=== PATIENT | male | born 1955 | race American Indian/Alaskan Native ===

== ENCOUNTER 2019-04-13 20:56 | Inpatient (IN) | payer OTHER, MEDICARE ==
[2019-04-13] MEDS ORDERED: LASIX IV ONE (21:03)
--- NOTE | 2019-04-13 21:06 | Emergency Department Report ---
ED Shortness of Breath HPI - General Stated Complaint: HIGH BP Time Seen by Provider: 04/13/19 21:02 Source: patient, EMS, old records reviewed Mode of arrival: Stretcher Limitations: Physical Limitation (respiratory distress) - History of Present Illness Initial Comments: 67-year-old male with a past medical history CHF, hypertension, diabetes, end- stage renal disease on dialysis Saturday, , and Saturday presents to the hospital complaints of respiratory distress. Upon EMS arrival patient had respiratory distress, decreased responsiveness, and hypoxia. Patient was provided CPAP during transport with some improvement. They report a systolic blood pressure in the 300s. Patient states she's been compliant with his meds and dialysis with last dialysis Saturday i.e. 2 days ago. He also has some urine output. He denies pain. Rigging Man: DR Bowser - Related Data Allergies Allergy/AdvReac Type Severity Reaction Status Date / Time No Known Allergies Allergy Unverified 04/13/19 21:04 ED Review of Systems ROS: Stated complaint: HIGH BP Other details as noted in HPI Comment: Unobtainable due to pts medical conditions ED Past Medical Hx - Past Medical History Hx Hypertension: Yes Hx Congestive Heart Failure: Yes Hx Renal Disease: Yes (esrd) ED Physical Exam - Other Other exam information: General: Respiratory distress, alert Head exam: Atraumatic, normocephalic Eyes exam: Normal appearance, pupils equal reactive to light, extraocular movements intact ENT: Moist mucous membrane, normal oropharynx, maxillary sinus tenderness Neck exam: Normal inspection, full range of motion, no meningismus nontender Respiratory exam: Tachypnea, bilateral rales, breath sounds equal bilaterally Cardiovascular: Regular rate and rhythm, mild tachycardia Abdomen: Soft, nondistended, and nontender, with normal bowel sounds, no rebound, or guarding Extremity: Full range of motion, no calf tenderness or leg edema. Left arm dialysis access Back: Normal Inspection Neurologic: Alert, oriented x3, cranial nerves intact, no motor or sensory deficit Psychiatric: normal affect, normal mood Skin: Warm, dry, intact ED Course Vital Signs 04/13/19 21:00 Temperature 97.9 F Pulse Rate 94 H Respiratory 26 H Rate Blood Pressure 253/130 Blood Pressure 253/130 [Right] O2 Sat by Pulse 99 Oximetry - Consultations Consultation #1: 04/13/19 22:27 case d/w Dr Bowser who plans to perform dialysis in AM unless he deteriorates ED Medical Decision Making - Lab Data Result diagrams: 04/13/19 21:12 04/13/19 21:12 Lab Results 04/13/19 04/13/19 04/13/19 Range/Units 21:12 21:12 21:12 WBC 5.4 (4.5-11.0) K/mm3 RBC 3.82 (3.65-5.03) M/mm3 Hgb 11.8 (11.8-15.2) gm/dl Hct 34.0 L (35.5-45.6) % MCV 89 (84-94) fl MCH 31 (28-32) pg MCHC 35 H (32-34) % RDW 15.2 (13.2-15.2) % Plt Count 185 (140-440) K/mm3 Lymph % (Auto) 17.0 (13.4-35.0) % [place] % (Auto) 7.2 (0.0-7.3) % Eos % (Auto) 13.7 H (0.0-4.3) % Baso % (Auto) 1.0 (0.0-1.8) % Lymph # 0.9 L (1.2-5.4) K/mm3 [place] # 0.4 (0.0-0.8) K/mm3 Eos # 0.7 H (0.0-0.4) K/mm3 Baso # 0.1 (0.0-0.1) K/mm3 Seg Neutrophils % 61.1 (40.0-70.0) % Seg Neutrophils # 3.3 (1.8-7.7) K/mm3 PT 12.4 (12.2-14.9) Sec. INR 0.87 (0.87-1.13) Sodium 139 (137-145) mmol/L Potassium 3.7 (3.6-5.0) mmol/L Chloride 96.6 L (98-107) mmol/L Carbon Dioxide 22 (22-30) mmol/L Anion Gap 24 mmol/L BUN 56 H (9-20) mg/dL Creatinine 11.5 H (0.8-1.5) mg/dL Estimated GFR 4 ml/min BUN/Creatinine Ratio 5 % Glucose 214 H (75-100) mg/dL Calcium 8.5 (8.4-10.2) mg/dL Total Bilirubin 0.40 (0.1-1.2) mg/dL AST 36 (5-40) units/L ALT 25 (7-56) units/L Alkaline Phosphatase 96 (35-129) units/L Troponin T 0.033 H (0.00-0.029) ng/mL NT-Pro-B Natriuret Pep 65699 H (0-900) pg/mL Total Protein 7.3 (6.3-8.2) g/dL Albumin 3.8 L (3.9-5) g/dL Albumin/Globulin Ratio 1.1 % Triglycerides 203 H (2-149) mg/dL Cholesterol 160 (50-199) mg/dL LDL Cholesterol Direct 98 (50-130) mg/dL HDL Cholesterol 41 (40-59) mg/dL Cholesterol/HDL Ratio 3.90 % - EKG Data -: EKG Interpreted by Me EKG shows normal: sinus rhythm, axis (qrs 67), QRS complexes (qrsd 85), ST-T waves (no stemi/t inv) Rate: normal (84) - EKG Data When compared to previous EKG there are: previous EKG unavailable (awaiting name change/chart verification) - Radiology Data Radiology results: image reviewed (cxr: pulm edema read by me) - Medical Decision Making +pulm edema htn emergency esrd needing dialysis tx with lasix, bipap, nitro drip nephro consult pt sx improving with ed tx elevated trop likely due to esrd, asa given, repeat pending Hospitalist informed for admission - Differential Diagnosis pulmonary edema, CHF, hyperkalemia, LA Critical Care Time: Yes Critical care time in (mins) excluding proc time.: 35 Critical care attestation.: If time is entered above; I have spent that time in minutes in the direct care of this critically ill patient, excluding procedure time. ED Disposition Clinical Impression: Pulmonary edema, Hypertensive emergency, ESRD needing dialysis Disposition: OP ADMIT IP TO THIS HOSP Is pt being admited?: Yes Does the pt Need Aspirin: Yes Condition: Stable Time of Disposition: 22:44 (Dr Phillips/hosp)
[2019-04-13 21:25] LABS: Basophils # (Auto) 0.1 K/mm3 (0.0-0.1); Eosinophils # (Auto) 0.7 K/mm3 (0.0-0.4); Eosinophils % (Auto) 13.7 % (0.0-4.3); Hemoglobin 11.8 gm/dl (11.8-15.2); Lymphocytes # (Auto) 0.9 K/mm3 (1.2-5.4); Mean Corpuscular HGB Conc 35 % (32-34); Mean Corpuscular Volume 89 fl (84-94); Monocytes # (Auto) 0.4 K/mm3 (0.0-0.8); Monocytes % (Auto) 7.2 % (0.0-7.3); Platelet Count 185 K/mm3 (140-440); Red Blood Count 3.82 M/mm3 (3.65-5.03); Red Cell Distribution Width 15.2 % (13.2-15.2)
[2019-04-13 21:39] LABS: INR 0.87 (0.87-1.13)
[2019-04-13 21:45] LABS: Albumin 3.8 g/dL (3.9-5); Calcium 8.5 mg/dL (8.4-10.2)
[2019-04-13 21:57] LABS: Chol/HDL Ratio 3.9 %
[2019-04-13] MEDS: TRIDIL DRIP 50MG/250ML 50 MG/250 ML BOTTLE IV SCH (22:10)
[2019-04-13] MEDS ORDERED: ASPIRIN PO ONE (22:11)
[2019-04-13] MEDS ORDERED: NACL 0.9% 100 ML IV PRN (22:28)
--- NOTE | 2019-04-13 23:11 | XRay Report ---
PROCEDURE: XR CHEST 1V AP TECHNIQUE: Chest radiograph single view. HISTORY: Chest Pain COMPARISONS: None . FINDINGS: Heart: Normal. Mediastinum/Vessels: Normal. Lungs/Pleural space: Slight increased markings identified in the hilar regions may represent mild in filtrative process or vascular congestion. No effusion or pneumothorax. Bony thorax: No acute osseous abnormality. Life support devices: None. IMPRESSION: Slight increased markings hilar regions may represent a mild infiltrative process or vas cular congestion.. This document is electronically signed by Hannah Gamez DO., Apr 13 2019 11:09:56 PM ET
[2019-04-13] MEDS ORDERED: DILAUDID IV PRN (23:21)
[2019-04-13] MEDS ORDERED: SODIUM CHLORIDE FLUSH SYRINGE 10 ML IV PRN (23:21)
[2019-04-13] MEDS ORDERED: PERCOCET 5/325 PO PRN (23:21)
[2019-04-13] MEDS ORDERED: TYLENOL PO PRN (23:21)
[2019-04-13] MEDS ORDERED: ZOFRAN IV PRN (23:21)
[2019-04-13] MEDS ORDERED: D50W (25GM) Syringe IV PRN (23:26)
--- NOTE | 2019-04-13 23:44 | History and Physical Report ---
History of Present Illness Date of examination: 04/13/19 Chief complaint: unresponsiveness per daughter History of present illness: Patient is 64 year old -[place] male with history of end-stage renal disease on hemodialysis(T/T/S) who presented to the ED via EMS on account of unresponsiveness. Per her daughter, patient became unresponsive so she called 911. When EMS arrived, patient's BP was noted to be markedly elevated. On arrival to the ED, patient became responsive. He admitted to shortness of breath. He denies chest pain, palpitation, leg swelling, fever, chills, sore throat, runny nose or congestion, orthopnea or PND. No abdominal pain, constipation, diarrhea, dysuria or frequency. No headaches, nausea, vomiting, lightheadedness. In the ED, patient was placed on BiPAP due to respiratory distress. Of note, patient denies missing his dialysis. Past History Past Medical History: diabetes, dialysis, ESRD, hypertension Past Surgical History: No surgical history Social history: no significant social history (patient denies tobacco, alcohol or illicit drug use) Family history: diabetes, hypertension, other (others reviewed and noncontributory to presenting complaint) Medications and Allergies Allergies Allergy/AdvReac Type Severity Reaction Status Date / Time No Known Allergies Allergy Unverified 04/13/19 21:04 Active Meds: Active Medications Acetaminophen (Tylenol) 650 mg PO Q4H PRN PRN Reason: Pain MILD(1-3)/Fever >100.5/BAILEY Amlodipine Besylate (Norvasc) 10 mg PO QDAY [facility] Carvedilol (Coreg) 25 mg PO BID@0800,1700 [facility] Dextrose (D50w (25gm) Syringe) 50 ml IV PRN PRN PRN Reason: Hypoglycemia Heparin Sodium (Porcine) (Heparin) 5,000 unit SUB-Q Q8HR PAWEL Hydralazine HCl (Apresoline) 100 mg PO TID PAWEL Hydromorphone HCl (Dilaudid) 0.5 mg IV Q3H PRN PRN Reason: Pain , Severe (7-10) Nitroglycerin/Dextrose (Tridil Drip 50mg/250ml) 50 mg in 250 mls @ 3 mls/hr IV TITR PAWEL; Protocol Sodium Chloride (Nacl 0.9%) 100 mls @ 999 mls/hr IV GARIMA PRN PRN Reason: Hypotension Insulin Glargine (Lantus) 10 units SUB-Q QHS PAWEL Insulin Human Lispro (Humalog) 0 unit SUB-Q ACHS PAWEL; Protocol Ondansetron HCl (Zofran) 4 mg IV Q8H PRN PRN Reason: Nausea And Vomiting Oxycodone/Acetaminophen (Percocet 5/325) 1 tab PO Q6H PRN PRN Reason: Pain, Moderate (4-6) Sodium Chloride (Sodium Chloride Flush Syringe 10 Ml) 10 ml IV BID PAWEL Sodium Chloride (Sodium Chloride Flush Syringe 10 Ml) 10 ml IV PRN PRN PRN Reason: LINE FLUSH Review of Systems All systems: negative (except as documented in the HPI, 14 point system reviewed were negative) Exam - Constitutional Vitals: Temp Pulse Resp BP Pulse Ox 97.9 F 94 H 26 H 253/130 99 04/13/19 21:00 04/13/19 21:00 04/13/19 21:00 04/13/19 21:00 04/13/19 21:00 General appearance: Present: no acute distress, other (on BiPAP) - EENT Eyes: Present: PERRL, EOM intact ENT: hearing intact, clear oral mucosa - Neck Neck: Present: supple - Respiratory Respiratory effort: normal Respiratory: bilateral: diminished, rales (in bibasilar lungs) - Cardiovascular Rhythm: regular Heart Sounds: Present: S1 & S2 - Extremities Extremities: pulses symmetrical, No edema - Abdominal General gastrointestinal: Present: soft, non-tender, non-distended, normal bowel sounds Male genitourinary: Present: deferred - Integumentary Integumentary: Present: clear, warm, dry - Musculoskeletal Musculoskeletal: strength equal bilaterally - Psychiatric Psychiatric: appropriate mood/affect, intact judgment & insight - Neurologic Neurologic: CNII-XII intact, other (alert and oriented 3) Results - Labs CBC & Chem 7: 04/13/19 21:12 04/13/19 21:12 Labs: Laboratory Last Values WBC 5.4 K/mm3 (4.5-11.0) 04/13/19 21:12 RBC 3.82 M/mm3 (3.65-5.03) 04/13/19 21:12 Hgb 11.8 gm/dl (11.8-15.2) 04/13/19 21:12 Hct 34.0 % (35.5-45.6) L 04/13/19 21:12 MCV 89 fl (84-94) 04/13/19 21:12 MCH 31 pg (28-32) 04/13/19 21:12 MCHC 35 % (32-34) H 04/13/19 21:12 RDW 15.2 % (13.2-15.2) 04/13/19 21:12 Plt Count 185 K/mm3 (140-440) 04/13/19 21:12 Lymph % (Auto) 17.0 % (13.4-35.0) 04/13/19 21:12 [place] % (Auto) 7.2 % (0.0-7.3) 04/13/19 21:12 Eos % (Auto) 13.7 % (0.0-4.3) H 04/13/19 21:12 Baso % (Auto) 1.0 % (0.0-1.8) 04/13/19 21:12 Lymph # 0.9 K/mm3 (1.2-5.4) L 04/13/19 21:12 [place] # 0.4 K/mm3 (0.0-0.8) 04/13/19 21:12 Eos # 0.7 K/mm3 (0.0-0.4) H 04/13/19 21:12 Baso # 0.1 K/mm3 (0.0-0.1) 04/13/19 21:12 Seg Neutrophils % 61.1 % (40.0-70.0) 04/13/19 21:12 Seg Neutrophils # 3.3 K/mm3 (1.8-7.7) 04/13/19 21:12 PT 12.4 Sec. (12.2-14.9) 04/13/19 21:12 INR 0.87 (0.87-1.13) 04/13/19 21:12 Sodium 139 mmol/L (137-145) 04/13/19 21:12 Potassium 3.7 mmol/L (3.6-5.0) 04/13/19 21:12 Chloride 96.6 mmol/L (98-107) L 04/13/19 21:12 Carbon Dioxide 22 mmol/L (22-30) 04/13/19 21:12 24 mmol/L 04/13/19 21:12 BUN 56 mg/dL (9-20) H 04/13/19 21:12 11.5 mg/dL (0.8-1.5) H 04/13/19 21:12 Estimated GFR 4 ml/min 04/13/19 21:12 5 % 04/13/19 21:12 Glucose 214 mg/dL (75-100) H 04/13/19 21:12 Calcium 8.5 mg/dL (8.4-10.2) 04/13/19 21:12 0.40 mg/dL (0.1-1.2) 04/13/19 21:12 AST 36 units/L (5-40) 04/13/19 21:12 ALT 25 units/L (7-56) 04/13/19 21:12 96 units/L (35-129) 04/13/19 21:12 0.033 ng/mL (0.00-0.029) H 04/13/19 21:12 NT-Pro-B Natriuret Pep 31563 pg/mL (0-900) H 04/13/19 21:12 7.3 g/dL (6.3-8.2) 04/13/19 21:12 3.8 g/dL (3.9-5) L 04/13/19 21:12 1.1 % 04/13/19 21:12 Triglycerides 203 mg/dL (2-149) H 04/13/19 21:12 Cholesterol 160 mg/dL (50-199) 04/13/19 21:12 98 mg/dL (50-130) 04/13/19 21:12 41 mg/dL (40-59) 04/13/19 21:12 3.90 % 04/13/19 21:12 Assessment and Plan Assessment and plan: Acute hypoxemic respiratory failure -Likely secondary to pulmonary edema -On BiPAP and duonebs NSTEMI -On ACS protocol with heparin drip -Echocardiogram pending -Cardiology consulted Hypertensive emergency with SBP>200 -On nitroglycerin drip -Oral antihypertensives started Fluid overload in ESRD -On IV diuretics since patient still makes urine -Nephrology consulted for hemodialysis ESRD on HD (T/T/S) -Nephrology consulted DM2 with hyperglycemia -On SSI and Lantus I spent 45 minutes providing critical care to this seriously ill patient who requires frequent reassessment of his respiratory and cardiovascular status.
[2019-04-14] MEDS ORDERED: ASPIRIN ONE (01:13)
[2019-04-14] MEDS ORDERED: NORVASC ONE (01:14)
[2019-04-14] MEDS ORDERED: APRESOLINE ONE ×3 (01:14)
[2019-04-14] MEDS ORDERED: COREG ONE (01:15)
[2019-04-14] MEDS: COREG PO SCH ×3 (01:16→19:28)
[2019-04-14] MEDS: NORVASC PO SCH ×2 (01:16→09:36)
[2019-04-14] MEDS: APRESOLINE PO SCH ×4 (01:16→21:14)
[2019-04-14] MEDS ORDERED: HEPARIN 10,000 UNITS/10 ML IV ONE ×2 (02:23→05:10)
[2019-04-14] MEDS ORDERED: HEPARIN/ 0.45% NACL-25,000 UNIT/500 ML 25,000 UNIT/500 ML BAG IV SCH (03:00)
[2019-04-14] MEDS: DUONEB *Not for PRN Use IH SCH ×4 (03:16→20:54)
[2019-04-14] MEDS: TRIDIL DRIP 50MG/250ML 50 MG/250 ML BOTTLE IV SCH ×2 (03:23→08:40)
[2019-04-14 04:31] LABS: Hematocrit 27.9 % (35.5-45.6); Hemoglobin 9.5 gm/dl (11.8-15.2)
[2019-04-14 04:40] LABS: Calcium 8.2 mg/dL (8.4-10.2)
[2019-04-14 04:41] LABS: INR 0.97 (0.87-1.13); Partial Thromboplastin Time 30.8 Sec. (24.2-36.6)
[2019-04-14] MEDS: LASIX IV SCH ×3 (05:11→21:13)
[2019-04-14] MEDS ORDERED: HEPARIN SUB-Q SCH (06:00)
--- NOTE | 2019-04-14 07:57 | Progress Note ---
Assessment and Plan Assessment and plan: --Acute hypoxemic respiratory failure -Likely secondary to pulmonary edema -On BiPAP and duonebs --NSTEMI Probably nonspecific in the setting of end-stage renal disease However patient has multiple risk factors. Need to rule out NSTEMI dc heparin drip,per cardiology f/u Echocardiogram pending f/u Cardiology evaluation and recommendations --Drop in H&H from 11.8-9.5 Patient is on heparin drip, pending cardiology evaluation monitor H&H, Hold heparin if significant drop in H&H --Hypertensive emergency with SBP>200 On nitroglycerin drip, blood pressures reasonable level Continue Oral antihypertensives started --Fluid overload in ESRD On IV diuretics since patient still makes urine Nephrology consulted for hemodialysis per schedule --ESRD on HD (//) -Nephrology consulted --DM2 with hyperglycemia Accu checks sliding scale coverage and ADA diet and Lantus --DVT prophylaxis;SCD Consults and recommendations noted and appreciated Discussed with cardiology Critical care time 35 minutes History Interval history: Patient's examined medical records reviewed Admitted with hypertensive emergency on Tridil drip, blood pressure seems reasonably limited Non-ST elevation NV on heparin drip Patient feels better denies chest pain or shortness of breath Vital signs reviewed Hospitalist Physical - Constitutional Vitals: Temp Pulse Resp BP Pulse Ox 98.5 F 66 14 154/64 100 04/14/19 03:34 04/14/19 06:00 04/14/19 06:00 04/14/19 06:00 04/14/19 06:00 General appearance: Present: no acute distress, well-nourished, obese - EENT Eyes: Present: PERRL, EOM intact - Neck Neck: Present: supple, normal ROM - Respiratory Respiratory effort: normal Respiratory: bilateral: diminished, rales, negative: rhonchi, wheezing - Cardiovascular Rhythm: regular Heart Sounds: Present: S1 & S2 - Extremities Extremities: no ischemia, No edema - Abdominal General gastrointestinal: soft, non-tender, non-distended, normal bowel sounds - Integumentary Integumentary: Present: clear, warm - Psychiatric Psychiatric: appropriate mood/affect, cooperative - Neurologic Neurologic: CNII-XII intact, moves all extremities Results - Labs CBC & Chem 7: 04/14/19 08:12 04/14/19 04:15 Labs: Laboratory Last Values WBC 5.4 K/mm3 (4.5-11.0) 04/13/19 21:12 RBC 3.82 M/mm3 (3.65-5.03) 04/13/19 21:12 Hgb 9.5 gm/dl (11.8-15.2) L 04/14/19 04:15 Hct 27.9 % (35.5-45.6) L D 04/14/19 04:15 MCV 89 fl (84-94) 04/13/19 21:12 MCH 31 pg (28-32) 04/13/19 21:12 MCHC 35 % (32-34) H 04/13/19 21:12 RDW 15.2 % (13.2-15.2) 04/13/19 21:12 Plt Count 155 K/mm3 (140-440) 04/14/19 04:15 Lymph % (Auto) 17.0 % (13.4-35.0) 04/13/19 21:12 [place] % (Auto) 7.2 % (0.0-7.3) 04/13/19 21:12 Eos % (Auto) 13.7 % (0.0-4.3) H 04/13/19 21:12 Baso % (Auto) 1.0 % (0.0-1.8) 04/13/19 21:12 Lymph # 0.9 K/mm3 (1.2-5.4) L 04/13/19 21:12 [place] # 0.4 K/mm3 (0.0-0.8) 04/13/19 21:12 Eos # 0.7 K/mm3 (0.0-0.4) H 04/13/19 21:12 Baso # 0.1 K/mm3 (0.0-0.1) 04/13/19 21:12 Seg Neutrophils % 61.1 % (40.0-70.0) 04/13/19 21:12 Seg Neutrophils # 3.3 K/mm3 (1.8-7.7) 04/13/19 21:12 PT 13.5 Sec. (12.2-14.9) 04/14/19 04:15 INR 0.97 (0.87-1.13) 04/14/19 04:15 APTT 30.8 Sec. (24.2-36.6) 04/14/19 04:15 Sodium 137 mmol/L (137-145) 04/14/19 04:15 Potassium 4.2 mmol/L (3.6-5.0) 04/14/19 04:15 Chloride 97.4 mmol/L (98-107) L 04/14/19 04:15 Carbon Dioxide 25 mmol/L (22-30) 04/14/19 04:15 19 mmol/L 04/14/19 04:15 BUN 62 mg/dL (9-20) H 04/14/19 04:15 12.4 mg/dL (0.8-1.5) H 04/14/19 04:15 Estimated GFR 5 ml/min 04/14/19 04:15 5 % 04/14/19 04:15 Glucose 161 mg/dL (75-100) H 04/14/19 04:15 Calcium 8.2 mg/dL (8.4-10.2) L 04/14/19 04:15 0.40 mg/dL (0.1-1.2) 04/13/19 21:12 AST 36 units/L (5-40) 04/13/19 21:12 ALT 25 units/L (7-56) 04/13/19 21:12 96 units/L (35-129) 04/13/19 21:12 0.103 ng/mL (0.00-0.029) H* 04/14/19 04:15 NT-Pro-B Natriuret Pep 46471 pg/mL (0-900) H 04/13/19 21:12 7.3 g/dL (6.3-8.2) 04/13/19 21:12 3.8 g/dL (3.9-5) L 04/13/19 21:12 1.1 % 04/13/19 21:12 Triglycerides 203 mg/dL (2-149) H 04/13/19 21:12 Cholesterol 160 mg/dL (50-199) 04/13/19 21:12 98 mg/dL (50-130) 04/13/19 21:12 41 mg/dL (40-59) 04/13/19 21:12 3.90 % 04/13/19 21:12 Active Medications - Current Medications Current Medications: Generic Name Dose Route Start Last Admin Trade Name Freq PRN Reason Stop Dose Admin Acetaminophen 650 mg 04/13/19 23:21 Tylenol PO Q4H PRN Pain MILD(1-3)/Fever >100.5/BAILEY Albuterol/Ipratropium 1 ampul 04/14/19 02:45 04/14/19 03:16 Duoneb *Not For Prn Use* IH Not Given Q6HRT PAWEL Amlodipine Besylate 10 mg 04/13/19 23:28 04/14/19 01:16 Norvasc PO 10 mg QDAY PAWEL Administration Atorvastatin Calcium 80 mg 04/14/19 02:27 04/14/19 05:11 Lipitor PO 80 mg QHS [facility] Administration Carvedilol 25 mg 04/13/19 23:45 04/14/19 01:16 Coreg PO 25 mg BID@0800,1700 PAWEL Administration Dextrose 50 ml 04/13/19 23:26 D50w (25gm) Syringe IV PRN PRN Hypoglycemia Furosemide 40 mg 04/14/19 04:00 04/14/19 05:11 Lasix IV 40 mg Q8H PAWEL Administration Hydralazine HCl 100 mg 04/13/19 23:28 04/14/19 01:16 Apresoline PO 100 mg TID PAWEL Administration Hydromorphone HCl 0.5 mg 04/13/19 23:21 Dilaudid IV Q3H PRN Pain , Severe (7-10) Nitroglycerin/Dextrose 50 mg in 250 mls @ 3 mls/hr 04/13/19 22:00 04/14/19 05:37 Tridil Drip 50mg/250ml IV 145 mcg/min TITR PAWEL 43.5 mls/hr Titration Protocol 10 MCG/MIN Sodium Chloride 100 mls @ 999 mls/hr 04/13/19 22:28 Nacl 0.9% IV GARIMA PRN Hypotension Heparin Sodium/Sodium Chloride 25,000 unit in 500 mls @ 20 mls/hr 04/14/19 03:00 04/14/19 05:12 Heparin/ 0.45% Nacl-25,000 Unit/500 Ml IV 1,000 units/hr TITRATE PAEWL 20 mls/hr Administration Protocol 1,000 UNITS/HR Insulin Glargine 10 units 04/14/19 22:00 Lantus SUB-Q QHS PAWEL Insulin Human Lispro 0 unit 04/14/19 07:30 Humalog SUB-Q ACHS [facility] Protocol Ondansetron HCl 4 mg 04/13/19 23:21 Zofran IV Q8H PRN Nausea And Vomiting Oxycodone/Acetaminophen 1 tab 04/13/19 23:21 Percocet 5/325 PO Q6H PRN Pain, Moderate (4-6) Sodium Chloride 10 ml 04/14/19 10:00 Sodium Chloride Flush Syringe 10 Ml IV BID PAWEL Sodium Chloride 10 ml 04/13/19 23:21 Sodium Chloride Flush Syringe 10 Ml IV PRN PRN LINE FLUSH
[2019-04-14] MEDS: HumaLOG SUB-Q SCH ×4 (08:19→21:21)
[2019-04-14 08:45] LABS: Hemoglobin 9.3 gm/dl (11.8-15.2)
[2019-04-14] MEDS: SODIUM CHLORIDE FLUSH SYRINGE 10 ML IV SCH ×2 (10:00→21:13)
--- NOTE | 2019-04-14 10:54 | Consultation ---
History of Present Illness - Reason for Consult Consult date: 04/14/19 chronic renal failure, end stage renal disease - History of Present Illness Very pleasant 64-year-old -[place] male, well known to us from the dialysis unit with a history of end-stage renal disease in the setting of hypertension, diabetes, who presents to emergency department found initially unresponsive by family. ER evaluation showed the patient had significantly elevated blood pressures and evidence of pulmonary edema. She was started on nitroglycerin drip and managed in the ICU. Was also placed on BiPAP for acute on chronic respiratory failure with hypoxia. Nephrology is being consult this time for chronic dialysis needs. He typically dialyzes on a Saturday, , Saturday schedule. He denies any recently missed dialysis sessions. He denies any significant extra fluid volume over the weekend. He states that he has been as compliant with his medications as well as with low-sodium diet. On evaluation this morning he has been weaned off his nitroglycerin drip and his hemodynamics are stable at this time. He is being started back on his oral antihypertensive regimen. Plan for hemodialysis today to maintain on his Saturday schedule. Past History Past Medical History: diabetes, dialysis, ESRD, hypertension Past Surgical History: No surgical history Social history: no significant social history (patient denies tobacco, alcohol or illicit drug use) Family history: diabetes, hypertension, other (others reviewed and noncontributory to presenting complaint) Medications and Allergies Allergies Allergy/AdvReac Type Severity Reaction Status Date / Time No Known Allergies Allergy Unverified 04/13/19 21:04 Active Meds: Active Medications Acetaminophen (Tylenol) 650 mg PO Q4H PRN PRN Reason: Pain MILD(1-3)/Fever >100.5/BAILEY Albuterol/Ipratropium (Duoneb *Not For Prn Use*) 1 ampul IH Q6HRT [facility] Last Admin: 04/14/19 09:55 Dose: 1 ampul Documented by: Amlodipine Besylate (Norvasc) 10 mg PO QDAY [facility] Last Admin: 04/14/19 09:36 Dose: 10 mg Documented by: Atorvastatin Calcium (Lipitor) 80 mg PO QHS [facility] Last Admin: 04/14/19 05:11 Dose: 80 mg Documented by: Carvedilol (Coreg) 25 mg PO BID@0800,1700 [facility] Last Admin: 04/14/19 08:18 Dose: 25 mg Documented by: Dextrose (D50w (25gm) Syringe) 50 ml IV PRN PRN PRN Reason: Hypoglycemia Furosemide (Lasix) 40 mg IV Q8H [facility] Last Admin: 04/14/19 05:11 Dose: 40 mg Documented by: Heparin Sodium (Porcine) (Heparin) 5,000 unit SUB-Q Q12HR [facility] Hydralazine HCl (Apresoline) 100 mg PO TID [facility] Last Admin: 04/14/19 08:17 Dose: 100 mg Documented by: Hydromorphone HCl (Dilaudid) 0.5 mg IV Q3H PRN PRN Reason: Pain , Severe (7-10) Nitroglycerin/Dextrose (Tridil Drip 50mg/250ml) 50 mg in 250 mls @ 3 mls/hr IV TITR [facility]; Protocol Last Admin: 04/14/19 08:40 Dose: 115 mcg/min, 34.5 mls/hr Documented by: Sodium Chloride (Nacl 0.9%) 100 mls @ 999 mls/hr IV GAIRMA PRN PRN Reason: Hypotension Insulin Glargine (Lantus) 10 units SUB-Q QHS [facility] Insulin Human Lispro (Humalog) 0 unit SUB-Q ACHS [facility]; Protocol Last Admin: 04/14/19 08:19 Dose: Not Given Documented by: Ondansetron HCl (Zofran) 4 mg IV Q8H PRN PRN Reason: Nausea And Vomiting Oxycodone/Acetaminophen (Percocet 5/325) 1 tab PO Q6H PRN PRN Reason: Pain, Moderate (4-6) Sodium Chloride (Sodium Chloride Flush Syringe 10 Ml) 10 ml IV BID [facility] Sodium Chloride (Sodium Chloride Flush Syringe 10 Ml) 10 ml IV PRN PRN PRN Reason: LINE FLUSH Review of Systems All systems: negative Constitutional: fatigue, weakness Exam - Vital Signs Vital signs: Vital Signs Temp Pulse Resp BP Pulse Ox 97.9 F 94 H 30 H 253/130 96 04/13/19 21:00 04/13/19 21:00 04/13/19 21:00 04/13/19 21:00 04/13/19 21:00 - General Appearance General appearance: well-developed, well-nourished, appears stated age EENT: ATNC, PERRL Neck: Present: neck supple, trachea midline Respiratory: Clear to Ascultation, Normal Exam Heart: regular, S1S2 Gastrointestinal: Present: normal, normoactive bowel sounds Integumentary: no rash, warm and dry Neurologic: no focal deficit, no asterixis Psychiatric: mood/affect appropriate, cooperative Results - Lab Results 04/14/19 08:12 04/14/19 04:15 Most recent lab results Calcium 8.2 mg/dL (8.4-10.2) L 04/14/19 04:15 Assessment and Plan - Patient Problems (1) ESRD needing dialysis Current Visit: Yes Status: Chronic Plan to address problem: Will maintain patient on Saturday//Saturday inpatient hemodialysis schedule. (2) Hypertensive chronic kidney disease with stage 5 chronic kidney disease or end stage renal disease Current Visit: Yes Status: Chronic Plan to address problem: Now he has been weaned off the nitroglycerin drip. He has been started on his home antihypertensive regimen. We'll continue to monitor on these current medications. (3) Fluid overload Current Visit: Yes Status: Acute Plan to address problem: Optimize volume status with ultrafiltration during hemodialysis. (4) Anemia in CKD (chronic kidney disease) Current Visit: Yes Status: Chronic Qualifiers: Chronic kidney disease stage: on chronic dialysis Qualified Code(s): N18.6 - End stage renal disease; D63.1 - Anemia in chronic kidney disease; Z99.2 - Dependence on renal dialysis Plan to address problem: As he is now normotensive and weaned off the nitroglycerin drip we will initiate KARUNA therapy with hemodialysis sessions. (5) Secondary hyperparathyroidism (of renal origin) Current Visit: Yes Status: Chronic Plan to address problem: Continue home phosphate binder regimen.
--- NOTE | 2019-04-14 11:39 | Consultation ---
History of Present Illness - Reason for Consult Consult date: 04/14/19 Hypertensive Emergency Requesting physician: WILLIE RAHMAN - History of Present Illness 64 y/o male with known ESRD on HD and Hypertension admitted with Hypertensive Emergency and acute respiratory failure. Stated on continous nitro drip in ED. Now has improved BP and is scheduled for HD. Was on bipap but weaned to nasal cannula. No headache, no chest pain and shortness of breath has improved. Remainder is negative. Past History Past Medical History: diabetes, dialysis, ESRD, hypertension Past Surgical History: No surgical history Social history: no significant social history (patient denies tobacco, alcohol or illicit drug use) Family history: diabetes, hypertension, other (others reviewed and noncontributory to presenting complaint) Medications and Allergies Allergies Allergy/AdvReac Type Severity Reaction Status Date / Time No Known Allergies Allergy Unverified 04/13/19 21:04 Active Meds: Active Medications Acetaminophen (Tylenol) 650 mg PO Q4H PRN PRN Reason: Pain MILD(1-3)/Fever >100.5/[facility] Albuterol/Ipratropium (Duoneb *Not For Prn Use*) 1 ampul IH Q6HRT [facility] Last Admin: 04/14/19 09:55 Dose: 1 ampul Documented by: Amlodipine Besylate (Norvasc) 10 mg PO QDAY [facility] Last Admin: 04/14/19 09:36 Dose: 10 mg Documented by: Atorvastatin Calcium (Lipitor) 80 mg PO QHS [facility] Last Admin: 04/14/19 05:11 Dose: 80 mg Documented by: Carvedilol (Coreg) 25 mg PO BID@0800,1700 [facility] Last Admin: 04/14/19 08:18 Dose: 25 mg Documented by: Dextrose (D50w (25gm) Syringe) 50 ml IV PRN PRN PRN Reason: Hypoglycemia Furosemide (Lasix) 40 mg IV Q8H [facility] Last Admin: 04/14/19 05:11 Dose: 40 mg Documented by: Heparin Sodium (Porcine) (Heparin) 5,000 unit SUB-Q Q12HR [facility] Hydralazine HCl (Apresoline) 100 mg PO TID [facility] Last Admin: 04/14/19 08:17 Dose: 100 mg Documented by: Hydromorphone HCl (Dilaudid) 0.5 mg IV Q3H PRN PRN Reason: Pain , Severe (7-10) Nitroglycerin/Dextrose (Tridil Drip 50mg/250ml) 50 mg in 250 mls @ 3 mls/hr IV TITR [facility]; Protocol Last Admin: 04/14/19 08:40 Dose: 115 mcg/min, 34.5 mls/hr Documented by: Sodium Chloride (Nacl 0.9%) 100 mls @ 999 mls/hr IV GARIMA PRN PRN Reason: Hypotension Insulin Glargine (Lantus) 10 units SUB-Q QHS [facility] Insulin Human Lispro (Humalog) 0 unit SUB-Q ACHS [facility]; Protocol Last Admin: 04/14/19 08:19 Dose: Not Given Documented by: Ondansetron HCl (Zofran) 4 mg IV Q8H PRN PRN Reason: Nausea And Vomiting Oxycodone/Acetaminophen (Percocet 5/325) 1 tab PO Q6H PRN PRN Reason: Pain, Moderate (4-6) Sodium Chloride (Sodium Chloride Flush Syringe 10 Ml) 10 ml IV BID [facility] Sodium Chloride (Sodium Chloride Flush Syringe 10 Ml) 10 ml IV PRN PRN PRN Reason: LINE FLUSH Review of Systems All systems: negative Exam - Constitutional Vitals: Temp Pulse Resp BP Pulse Ox 98.2 F 82 16 148/81 99 04/14/19 08:00 04/14/19 10:24 04/14/19 10:24 04/14/19 09:36 04/14/19 10:15 General appearance: Present: no acute distress, well-nourished - EENT Eyes: Present: PERRL ENT: hearing intact - Neck Neck: Present: supple - Respiratory Respiratory effort: normal Respiratory: bilateral: diminished - Cardiovascular Rhythm: regular Heart Sounds: Present: S1 & S2 - Abdominal General gastrointestinal: Present: soft, non-tender, normal bowel sounds Results - Labs CBC & Chem 7: 04/14/19 08:12 04/14/19 04:15 Labs: Abnormal lab results 04/13/19 04/13/19 04/14/19 Range/Units 21:12 21:12 00:48 Hgb (11.8-15.2) gm/dl Hct 34.0 L (35.5-45.6) % MCHC 35 H (32-34) % Eos % (Auto) 13.7 H (0.0-4.3) % Lymph # 0.9 L (1.2-5.4) K/mm3 Eos # 0.7 H (0.0-0.4) K/mm3 Chloride 96.6 L (98-107) mmol/L BUN 56 H (9-20) mg/dL Creatinine 11.5 H (0.8-1.5) mg/dL Glucose 214 H (75-100) mg/dL Calcium (8.4-10.2) mg/dL Troponin T 0.033 H 0.120 H* D (0.00-0.029) ng/mL NT-Pro-B Natriuret Pep 91213 H (0-900) pg/mL Albumin 3.8 L (3.9-5) g/dL Triglycerides 203 H (2-149) mg/dL 04/14/19 04/14/19 04/14/19 Range/Units 04:15 04:15 04:15 Hgb 9.5 L (11.8-15.2) gm/dl Hct 27.9 L D (35.5-45.6) % MCHC (32-34) % Eos % (Auto) (0.0-4.3) % Lymph # (1.2-5.4) K/mm3 Eos # (0.0-0.4) K/mm3 Chloride 97.4 L (98-107) mmol/L BUN 62 H (9-20) mg/dL Creatinine 12.4 H (0.8-1.5) mg/dL Glucose 161 H (75-100) mg/dL Calcium 8.2 L (8.4-10.2) mg/dL Troponin T 0.103 H* (0.00-0.029) ng/mL NT-Pro-B Natriuret Pep (0-900) pg/mL Albumin (3.9-5) g/dL Triglycerides (2-149) mg/dL 04/14/19 04/14/19 Range/Units 06:28 08:12 Hgb 9.3 L (11.8-15.2) gm/dl Hct 27.0 L (35.5-45.6) % MCHC (32-34) % Eos % (Auto) (0.0-4.3) % Lymph # (1.2-5.4) K/mm3 Eos # (0.0-0.4) K/mm3 Chloride (98-107) mmol/L BUN (9-20) mg/dL Creatinine (0.8-1.5) mg/dL Glucose (75-100) mg/dL Calcium (8.4-10.2) mg/dL Troponin T 0.086 H (0.00-0.029) ng/mL NT-Pro-B Natriuret Pep (0-900) pg/mL Albumin (3.9-5) g/dL Triglycerides (2-149) mg/dL - Imaging and Cardiology Chest x-ray: image reviewed (pulmonary edema) Assessment and Plan 64 y/o male with acute respiratory failure secondary to pulmonary edema from hypertensive emergency 1. Off drips, BP improved 2. Off bipap, now stable on nasal cannula 3. HD per renal 4. Stable for transfer to floor. Wean FiO2 as tolerated for sats >88%
[2019-04-14] MEDS: HEPARIN SUB-Q SCH ×2 (12:00→21:15)
--- NOTE | 2019-04-14 12:52 | Consultation ---
History of Present Illness Consult date: 04/14/19 Requesting physician: ROBERTO AYALA Consult reason: elevated troponin History of present illness: The patient is 64 year old -[place] male with a history of end-stage renal disease on hemodialysis(T/T/S), HTN, DM, obesity. He is previously unknown to our practice. He presented with complaints of SOB and elevated BPs. Per the chart, pt presented to the ED via EMS on account of unresponsiveness. Per her aldo gaspar, patient became unresponsive so she called 911. When EMS arrived, patient's BP was noted to be markedly elevated. On arrival to the ED, patient became responsive. Pt denies any occurrence of chest pain, palpitations, n/v, diaphoresis or edema. Pt reports compliance with dialysis and home medication regimen. In the ED, patient was placed on BiPAP due to respiratory distress and nitro gtt for hypertensive emergency. He has since been weaned off of BiPAP and nitro gtt. He appears comfortable on evaluation. Past History Past Medical History: diabetes, dialysis, ESRD, hypertension Past Surgical History: No surgical history Social history: denies: smoking, alcohol abuse, prescription drug abuse Family history: diabetes, hypertension Medications and Allergies Allergies Allergy/AdvReac Type Severity Reaction Status Date / Time No Known Allergies Allergy Unverified 04/13/19 21:04 Active Meds: Active Medications Acetaminophen (Tylenol) 650 mg PO Q4H PRN PRN Reason: Pain MILD(1-3)/Fever >100.5/[facility] Albuterol/Ipratropium (Duoneb *Not For Prn Use*) 1 ampul IH Q6HRT [facility] Last Admin: 04/14/19 09:55 Dose: 1 ampul Documented by: Amlodipine Besylate (Norvasc) 10 mg PO QDAY [facility] Last Admin: 04/14/19 09:36 Dose: 10 mg Documented by: Atorvastatin Calcium (Lipitor) 80 mg PO QHS [facility] Last Admin: 04/14/19 05:11 Dose: 80 mg Documented by: Carvedilol (Coreg) 25 mg PO BID@0800,1700 [facility] Last Admin: 04/14/19 08:18 Dose: 25 mg Documented by: Dextrose (D50w (25gm) Syringe) 50 ml IV PRN PRN PRN Reason: Hypoglycemia Furosemide (Lasix) 40 mg IV Q8H [facility] Last Admin: 04/14/19 05:11 Dose: 40 mg Documented by: Heparin Sodium (Porcine) (Heparin) 5,000 unit SUB-Q Q12HR [facility] Hydralazine HCl (Apresoline) 100 mg PO TID [facility] Last Admin: 04/14/19 08:17 Dose: 100 mg Documented by: Hydromorphone HCl (Dilaudid) 0.5 mg IV Q3H PRN PRN Reason: Pain , Severe (7-10) Nitroglycerin/Dextrose (Tridil Drip 50mg/250ml) 50 mg in 250 mls @ 3 mls/hr IV TITR [facility]; Protocol Last Titration: 04/14/19 08:45 Dose: 0 mcg/min, 0 mls/hr Documented by: Sodium Chloride (Nacl 0.9%) 100 mls @ 999 mls/hr IV GARIMA PRN PRN Reason: Hypotension Insulin Glargine (Lantus) 10 units SUB-Q QHS [facility] Insulin Human Lispro (Humalog) 0 unit SUB-Q ACHS [facility]; Protocol Last Admin: 04/14/19 12:31 Dose: Not Given Documented by: Ondansetron HCl (Zofran) 4 mg IV Q8H PRN PRN Reason: Nausea And Vomiting Oxycodone/Acetaminophen (Percocet 5/325) 1 tab PO Q6H PRN PRN Reason: Pain, Moderate (4-6) Sodium Chloride (Sodium Chloride Flush Syringe 10 Ml) 10 ml IV BID [facility] Sodium Chloride (Sodium Chloride Flush Syringe 10 Ml) 10 ml IV PRN PRN PRN Reason: LINE FLUSH Review of Systems Constitutional: no weight loss, no weight gain, no fever, no chills, no sweats Ears, nose, mouth and throat: no ear pain, no nose pain, no sinus pressure, no sinus pain Cardiovascular: shortness of breath, dyspnea on exertion, high blood pressure, no chest pain, no orthopnea, no palpitations, no rapid/irregular heart beat, no edema, no syncope, no lightheadedness, no leg edema Respiratory: shortness of breath, dyspnea on exertion, no cough, no congestion, no wheezing, no pain on inspiration Gastrointestinal: no abdominal pain, no nausea, no vomiting, no diarrhea, no constipation, no change in bowel habits Genitourinary Male: no dysuria, no hematuria, no flank pain, no discharge, no urinary frequency, no urinary hesitancy Musculoskeletal: no neck stiffness, no neck pain, no shooting arm pain, no arm numbness/tingling, no low back pain, no shooting leg pain Integumentary: no rash, no pruritis, no redness, no sores, no wounds Neurological: change in mentation (resolved), no head injury, no paralysis, no weakness, no parathesias, no numbness, no tingling, no seizures Psychiatric: no anxiety Endocrine: no cold intolerance, no heat intolerance Hematologic/Lymphatic: no easy bruising, no easy bleeding Allergic/Immunologic: no urticaria, no wheezing Physical Examination Vital Signs Temp Pulse Resp BP Pulse Ox 97.9 F 94 H 30 H 253/130 96 04/13/19 21:00 04/13/19 21:00 04/13/19 21:00 04/13/19 21:00 04/13/19 21:00 General appearance: no acute distress HEENT: Positive: PERRL, Normocephaly, Mucus Membranes Moist Neck: Positive: neck supple, trachea midline Cardiac: Positive: Reg Rate and Rhythm, S1/S2 Lungs: Positive: Decreased Breath Sounds Neuro: Positive: Grossly Intact Abdomen: Positive: Soft. Negative: Tender Skin: Negative: Rash, Wound Musculoskeletal: No Pain Extremities: Absent: edema Results 04/14/19 08:12 04/14/19 04:15 Cardiac Enzymes 04/13/19 Range/Units 21:12 AST 36 (5-40) units/L Coagulation 04/13/19 04/14/19 Range/Units 21:12 04:15 PT 12.4 13.5 (12.2-14.9) Sec. INR 0.87 0.97 (0.87-1.13) APTT 30.8 (24.2-36.6) Sec. Lipids 04/13/19 Range/Units 21:12 Triglycerides 203 H (2-149) mg/dL Cholesterol 160 (50-199) mg/dL HDL Cholesterol 41 (40-59) mg/dL Cholesterol/HDL Ratio 3.90 % CBC 04/13/19 04/14/19 04/14/19 Range/Units 21:12 04:15 08:12 WBC 5.4 (4.5-11.0) K/mm3 RBC 3.82 (3.65-5.03) M/mm3 Hgb 11.8 9.5 L 9.3 L (11.8-15.2) gm/dl Hct 34.0 L 27.9 L D 27.0 L (35.5-45.6) % Plt Count 185 155 (140-440) K/mm3 Lymph # 0.9 L (1.2-5.4) K/mm3 [place] # 0.4 (0.0-0.8) K/mm3 Eos # 0.7 H (0.0-0.4) K/mm3 Baso # 0.1 (0.0-0.1) K/mm3 Comprehensive Metabolic Panel 04/13/19 04/14/19 Range/Units 21:12 04:15 Sodium 139 137 (137-145) mmol/L Potassium 3.7 4.2 (3.6-5.0) mmol/L Chloride 96.6 L 97.4 L (98-107) mmol/L Carbon Dioxide 22 25 (22-30) mmol/L BUN 56 H 62 H (9-20) mg/dL Creatinine 11.5 H 12.4 H (0.8-1.5) mg/dL Glucose 214 H 161 H (75-100) mg/dL Calcium 8.5 8.2 L (8.4-10.2) mg/dL AST 36 (5-40) units/L ALT 25 (7-56) units/L Alkaline Phosphatase 96 (35-129) units/L Total Protein 7.3 (6.3-8.2) g/dL Albumin 3.8 L (3.9-5) g/dL - Imaging and Cardiology Echo: pending EKG: report reviewed, image reviewed EKG interpretations - Telemetry EKG Rhythm: Sinus Rhythm - EKG Sinus rhythms and dysrhythmias: sinus rhythm Assessment and Plan Pt presented with acute respiratory failure, ? acute heart failure, pulmonary edema, hypertensive emergency, ? bout of AMS. Pt reports compliance with dialysis and home medication regimen. In the ED, patient was placed on BiPAP for respiratory failure and nitro gtt for hypertensive emergency. He has since been weaned off of BiPAP and nitro gtt. He appears comfortable on evaluation. He denies any prior cardiac issues. Obtain echo. Optimize anti-hypertensive regimen. Volume optimization per nephrology. ECG with no acute ischemic changes, pt denies any occurrence of chest pain. Elevated troponins appear c/w NSTEMI type II. D/c heparin gtt. Further recs to follow per hospital course. The patient has been seen in conjunction with Dr. Gr who agrees with the assessment and plan of care. - Patient Problems (1) Acute heart failure Current Visit: Yes Status: Acute (2) Pulmonary edema Current Visit: Yes Status: Acute (3) NSTEMI (non-ST elevated myocardial infarction) Current Visit: Yes Status: Acute Plan to address problem: type II (4) Acute respiratory failure Current Visit: Yes Status: Acute (5) Hypertensive emergency Current Visit: Yes Status: Acute (6) ESRD (end stage renal disease) on dialysis Current Visit: Yes Status: Chronic (7) Diabetes Current Visit: Yes Status: Chronic (8) Anemia Current Visit: Yes Status: Acute (9) Altered mental status Current Visit: Yes Status: Resolved (10) Obesity Current Visit: Yes Status: Chronic
[2019-04-14] MEDS ORDERED: NACL 0.9 (PRIMING MACHINE ONLY DIALYSIS) MC ONE (16:31)
[2019-04-14] MEDS: LANTUS SUB-Q SCH (22:41)
[2019-04-15] MEDS: DUONEB *Not for PRN Use IH SCH ×4 (01:23→20:21)
[2019-04-15] MEDS: LASIX IV SCH ×3 (05:05→21:24)
[2019-04-15 07:21] LABS: Basophils % (Auto) 0.4 % (0.0-1.8); Eosinophils # (Auto) 0.4 K/mm3 (0.0-0.4); Eosinophils % (Auto) 7.1 % (0.0-4.3); Hematocrit 30.4 % (35.5-45.6); Hemoglobin 10.3 gm/dl (11.8-15.2); Lymphocytes # (Auto) 0.9 K/mm3 (1.2-5.4); Lymphocytes % (Auto) 15.1 % (13.4-35.0); Mean Corpuscular HGB Conc 34 % (32-34); Mean Corpuscular Volume 88 fl (84-94); Monocytes # (Auto) 0.5 K/mm3 (0.0-0.8); Monocytes % (Auto) 8.8 % (0.0-7.3); Platelet Count 178 K/mm3 (140-440); Red Blood Count 3.44 M/mm3 (3.65-5.03); Red Cell Distribution Width 15.4 % (13.2-15.2)
[2019-04-15] MEDS: HumaLOG SUB-Q SCH ×4 (07:30→21:38)
[2019-04-15 07:43] LABS: Albumin 3.6 g/dL (3.9-5); Calcium 8.5 mg/dL (8.4-10.2)
[2019-04-15] MEDS: COZAAR PO SCH (09:59)
[2019-04-15] MEDS ORDERED: NON-FORMULARY (Nifedipine Er 90 MG) PO SCH (10:00)
[2019-04-15] MEDS ORDERED: TELMISARTAN 40 MG PO SCH (10:00)
[2019-04-15] MEDS: NORVASC PO SCH (10:00)
[2019-04-15] MEDS ORDERED: PROCARDIA XL PO SCH (10:00)
[2019-04-15] MEDS: BABY ASPIRIN PO SCH (10:00)
[2019-04-15] MEDS: APRESOLINE PO SCH ×3 (10:00→21:25)
[2019-04-15] MEDS ORDERED: NON-FORMULARY (Atenolol 50 MG) PO SCH (10:00)
[2019-04-15] MEDS: COREG PO SCH ×2 (10:00→18:22)
[2019-04-15] MEDS: HEPARIN SUB-Q SCH ×2 (10:00→21:24)
[2019-04-15] MEDS: SODIUM CHLORIDE FLUSH SYRINGE 10 ML IV SCH (10:01)
--- NOTE | 2019-04-15 10:07 | Progress Note ---
Assessment and Plan - Patient Problems (1) ESRD needing dialysis Current Visit: Yes Status: Chronic Plan to address problem: Will maintain patient on Saturday//Saturday inpatient hemodialysis schedule. No acute needs for HD today. (2) Hypertensive chronic kidney disease with stage 5 chronic kidney disease or end stage renal disease Current Visit: Yes Status: Chronic Plan to address problem: Now he has been weaned off the nitroglycerin drip. He has been started on his home antihypertensive regimen. We'll continue to monitor on these current medications. (3) Fluid overload Current Visit: Yes Status: Acute Plan to address problem: Optimize volume status with ultrafiltration during hemodialysis. (4) Anemia in CKD (chronic kidney disease) Current Visit: Yes Status: Chronic Qualifiers: Chronic kidney disease stage: on chronic dialysis Qualified Code(s): N18.6 - End stage renal disease; D63.1 - Anemia in chronic kidney disease; Z99.2 - Dependence on renal dialysis Plan to address problem: As he is now normotensive and weaned off the nitroglycerin drip we will initiate KARUNA therapy with hemodialysis sessions. (5) Secondary hyperparathyroidism (of renal origin) Current Visit: Yes Status: Chronic Plan to address problem: Continue home phosphate binder regimen. Subjective Date of service: 04/15/19 Interval history: No acute issues overnight. ECHO noted, and no acute abnormalities. Blood pressures more stable this am, and was transferred out of the ICU yesterday as he was able to be weaned off the nitro gtt and BiPap. He tolerated HD well without any acute issues. Objective - Vital Signs Vital signs: Vital Signs - 12hr 04/14/19 04/15/19 04/15/19 23:34 03:57 04:30 Temperature 98.4 F 99.0 F Pulse Rate 80 83 81 Pulse Rate [ Bilateral Throughout] Respiratory 15 18 Rate Respiratory Rate [Bilateral Throughout] Blood Pressure 152/67 168/79 O2 Sat by Pulse 94 96 Oximetry 04/15/19 04/15/19 04/15/19 07:55 07:57 08:08 Temperature Pulse Rate Pulse Rate [ 77 78 Bilateral Throughout] Respiratory Rate Respiratory 18 18 Rate [Bilateral Throughout] Blood Pressure O2 Sat by Pulse 95 Oximetry 04/15/19 08:19 Temperature 98.6 F Pulse Rate 76 Pulse Rate [ Bilateral Throughout] Respiratory 16 Rate Respiratory Rate [Bilateral Throughout] Blood Pressure 161/73 O2 Sat by Pulse 95 Oximetry - General Appearance General appearance: well-developed, well-nourished, appears stated age EENT: ATNC, PERRL Neck: no JVD, no thyromegaly Respiratory: Present: Clear to Ascultation, Normal Exam Cardiology: regular, S1S2 Gastrointestinal: normal, normoactive bowel sounds Integumentary: no rash, warm and dry Neurologic: no focal deficit, no asterixis, alert and oriented x3 Psychiatric: mood/affect appropriate, cooperative - Lab 04/15/19 04:34 04/15/19 04:34 Most recent lab results Calcium 8.5 mg/dL (8.4-10.2) 04/15/19 04:34 - Allied health notes Allied health notes reviewed: nursing Medications & Allergies - Medications Allergies/Adverse Reactions: Allergies No Known Allergies Allergy (Unverified 04/13/19 21:04) Home Medications: Home Medications Medication Instructions Recorded Confirmed Last Taken Type Atenolol 50 mg PO DAILY 04/14/19 04/14/19 Unknown History AtorvaSTATin [Lipitor] 40 mg PO DAILY 04/14/19 04/14/19 Unknown History Auryxia 210 mg PO QAC 04/14/19 04/14/19 Unknown History Furosemide [Lasix TAB] 40 mg PO BID 04/14/19 04/14/19 Unknown History Nifedipine ER 90 mg PO DAILY 04/14/19 04/14/19 Unknown History Telmisartan 40 mg PO DAILY 04/14/19 04/14/19 Unknown History Active Medications: Generic Name Dose Route Start Last Admin Trade Name Freq PRN Reason Stop Dose Admin Acetaminophen 650 mg 04/13/19 23:21 Tylenol PO Q4H PRN Pain MILD(1-3)/Fever >100.5/[facility] Albuterol/Ipratropium 1 ampul 04/14/19 02:45 04/15/19 07:55 Duoneb *Not For Prn Use* IH 1 ampul Q6HRT [facility] Administration Amlodipine Besylate 10 mg 04/13/19 23:28 04/14/19 09:36 Norvasc PO 10 mg QDAY [facility] Administration Aspirin 81 mg 04/15/19 10:00 Baby Aspirin PO QDAY [facility] Atorvastatin Calcium 80 mg 04/14/19 02:27 04/14/19 21:13 Lipitor PO 80 mg QHS [facility] Administration Carvedilol 25 mg 04/13/19 23:45 04/14/19 19:28 Coreg PO Not Given BID@0800,1700 [facility] Dextrose 50 ml 04/13/19 23:26 D50w (25gm) Syringe IV PRN PRN Hypoglycemia Furosemide 40 mg 04/14/19 04:00 04/15/19 05:05 Lasix IV 40 mg Q8H [facility] Administration Heparin Sodium (Porcine) 5,000 unit 04/14/19 10:00 04/14/19 21:15 Heparin SUB-Q 5,000 unit Q12HR [facility] Administration Hydralazine HCl 100 mg 04/13/19 23:28 04/14/19 21:14 Apresoline PO 100 mg TID [facility] Administration Hydromorphone HCl 0.5 mg 04/13/19 23:21 Dilaudid IV Q3H PRN Pain , Severe (7-10) Nitroglycerin/Dextrose 50 mg in 250 mls @ 3 mls/hr 04/13/19 22:00 04/14/19 08:45 Tridil Drip 50mg/250ml IV 0 mcg/min TITR [facility] 0 mls/hr Titration Protocol 10 MCG/MIN Sodium Chloride 100 mls @ 999 mls/hr 04/13/19 22:28 Nacl 0.9% IV [facility] PRN Hypotension Insulin Glargine 10 units 04/14/19 22:00 04/14/19 22:41 Lantus SUB-Q 10 units QHS [facility] Administration Insulin Human Lispro 0 unit 04/14/19 07:30 04/14/19 21:21 Humalog SUB-Q Not Given ACHS [facility] Protocol Losartan Potassium 50 mg 04/15/19 10:00 Cozaar PO QDAY [facility] Ondansetron HCl 4 mg 04/13/19 23:21 Zofran IV Q8H PRN Nausea And Vomiting Oxycodone/Acetaminophen 1 tab 04/13/19 23:21 Percocet 5/325 PO Q6H PRN Pain, Moderate (4-6) Sodium Chloride 10 ml 04/14/19 10:00 04/14/19 21:13 Sodium Chloride Flush Syringe 10 Ml IV 10 ml BID [facility] Administration Sodium Chloride 10 ml 04/13/19 23:21 04/15/19 05:07 Sodium Chloride Flush Syringe 10 Ml IV 10 ml PRN PRN Administration LINE FLUSH
--- NOTE | 2019-04-15 10:39 | Progress Note ---
Assessment and Plan Echo reviewed - EF 50-55%, mod LV thickening, grade 2 diastolic dysfunction, no significant valvular abnormalities. Continue to optimize anti-hypertensive regimen - losartan added today per primary. Volume optimization per nephrology. ECG with no acute ischemic changes, pt denies any occurrence of chest pain. Elevated troponins appear c/w NSTEMI type II. D/c heparin gtt. Plan for lexiscan MPI stress test in AM. NPO after MN. The patient has been seen in conjunction with Dr. Gr who agrees with the assessment and plan of care. - Patient Problems (1) Acute heart failure with preserved ejection fraction Current Visit: Yes Status: Acute (2) Hypertensive heart disease Current Visit: Yes Status: Chronic (3) Pulmonary edema Current Visit: Yes Status: Acute (4) NSTEMI (non-ST elevated myocardial infarction) Current Visit: Yes Status: Acute (5) Acute respiratory failure Current Visit: Yes Status: Acute (6) Hypertensive emergency Current Visit: Yes Status: Acute (7) ESRD (end stage renal disease) on dialysis Current Visit: Yes Status: Chronic (8) Diabetes Current Visit: Yes Status: Chronic (9) Anemia Current Visit: Yes Status: Acute (10) Altered mental status Current Visit: Yes Status: Resolved (11) Obesity Current Visit: Yes Status: Chronic Subjective Date of service: 04/15/19 Principal diagnosis: HF; HTN Interval history: pt resting in bed, states he is feeling better today. in Sr on tele. Objective Last Vital Signs Temp 98.6 F 04/15/19 08:19 Pulse 76 04/15/19 08:19 Resp 16 04/15/19 08:19 BP 161/73 04/15/19 08:19 Pulse Ox 95 04/15/19 08:19 - Physical Examination General: No Apparent Distress HEENT: Positive: PERRL, Normocephaly, Mucus Membranes Moist Neck: Positive: neck supple, trachea midline Cardiac: Positive: Reg Rate and Rhythm, S1/S2 Lungs: Positive: Decreased Breath Sounds Neuro: Positive: Grossly Intact Abdomen: Positive: Soft. Negative: Tender Skin: Negative: Rash, Wound Musculoskeletal: No Pain Extremities: Absent: edema - Labs and Meds Cardiac Enzymes 04/15/19 Range/Units 04:34 AST 18 (5-40) units/L CBC 04/15/19 Range/Units 04:34 WBC 5.9 (4.5-11.0) K/mm3 RBC 3.44 L (3.65-5.03) M/mm3 Hgb 10.3 L (11.8-15.2) gm/dl Hct 30.4 L (35.5-45.6) % Plt Count 178 (140-440) K/mm3 Lymph # 0.9 L (1.2-5.4) K/mm3 [place] # 0.5 (0.0-0.8) K/mm3 Eos # 0.4 (0.0-0.4) K/mm3 Baso # 0.0 (0.0-0.1) K/mm3 Comprehensive Metabolic Panel 04/15/19 Range/Units 04:34 Sodium 142 (137-145) mmol/L Potassium 3.2 L D (3.6-5.0) mmol/L Chloride 97.2 L (98-107) mmol/L Carbon Dioxide 27 (22-30) mmol/L BUN 29 H (9-20) mg/dL Creatinine 7.6 H (0.8-1.5) mg/dL Glucose 107 H (75-100) mg/dL Calcium 8.5 (8.4-10.2) mg/dL AST 18 (5-40) units/L ALT 16 (7-56) units/L Alkaline Phosphatase 75 (35-129) units/L Total Protein 6.8 (6.3-8.2) g/dL Albumin 3.6 L (3.9-5) g/dL - Imaging and Cardiology EKG: report reviewed, image reviewed Echo: report reviewed - Telemetry EKG Rhythm: Sinus Rhythm - EKG Sinus rhythms and dysrhythmias: sinus rhythm - Allied health notes Allied health notes reviewed: nursing
--- NOTE | 2019-04-15 10:40 | Progress Note ---
Assessment and Plan Assessment and plan: --Hypokalemia; replace per protocol and monitor levels --Acute hypoxemic respiratory failure: Symptoms Significantly improved, secondary to pulmonary edema BiPAP as needed and duonebs, pulmonary following --NSTEMI Probably nonspecific in the setting of end-stage renal disease However patient has multiple risk factors. However patient does not have chest pain Echo;Normal EF 50-55%, Cardiology following --Drop in H&H from 11.8-9.5-10.3 off Heparin drip, stable --Hypertensive emergency with SBP>200[present on admission] s/p Tridil drip, Blood pressures are reasonable control, continue multiple antihypertensives, When necessary medications --Fluid overload in ESRD On IV diuretics since patient still makes urine Nephrology following ,hemodialysis per schedule --ESRD on HD (//) -Nephrology following --DM2 with hyperglycemia Accu checks sliding scale coverage and ADA diet and Lantus --DVT prophylaxis;SCD Plan of care is reviewed with the patient and his nurse Possible discharge home tomorrow if stable History Interval history: Patient seen and examined this morning medical records reviewed Admitted with hypertensive emergency s/p Tridil drip Patient's blood pressures are reasonable level Denies chest pain or shortness of breath Vital signs noted Hospitalist Physical - Constitutional Vitals: Temp Pulse Resp BP Pulse Ox 98.6 F 76 16 161/73 95 04/15/19 08:19 04/15/19 08:19 04/15/19 08:19 04/15/19 08:19 04/15/19 08:19 General appearance: Present: no acute distress, well-nourished, obese - EENT Eyes: Present: PERRL, EOM intact - Neck Neck: Present: supple, normal ROM - Respiratory Respiratory effort: normal Respiratory: bilateral: diminished, negative: rales, rhonchi, wheezing - Cardiovascular Rhythm: regular Heart Sounds: Present: S1 & S2 - Extremities Extremities: no ischemia, pulses intact Peripheral Pulses: within normal limits - Abdominal General gastrointestinal: soft, non-tender, non-distended, normal bowel sounds - Integumentary Integumentary: Present: clear, warm - Psychiatric Psychiatric: appropriate mood/affect, cooperative - Neurologic Neurologic: CNII-XII intact, moves all extremities Results - Labs CBC & Chem 7: 04/15/19 04:34 04/15/19 04:34 Labs: Laboratory Last Values WBC 5.9 K/mm3 (4.5-11.0) 04/15/19 04:34 RBC 3.44 M/mm3 (3.65-5.03) L 04/15/19 04:34 Hgb 10.3 gm/dl (11.8-15.2) L 04/15/19 04:34 Hct 30.4 % (35.5-45.6) L 04/15/19 04:34 MCV 88 fl (84-94) 04/15/19 04:34 MCH 30 pg (28-32) 04/15/19 04:34 MCHC 34 % (32-34) 04/15/19 04:34 RDW 15.4 % (13.2-15.2) H 04/15/19 04:34 Plt Count 178 K/mm3 (140-440) 04/15/19 04:34 Lymph % (Auto) 15.1 % (13.4-35.0) 04/15/19 04:34 Gillespie % (Auto) 8.8 % (0.0-7.3) H 04/15/19 04:34 Eos % (Auto) 7.1 % (0.0-4.3) H 04/15/19 04:34 Baso % (Auto) 0.4 % (0.0-1.8) 04/15/19 04:34 Lymph # 0.9 K/mm3 (1.2-5.4) L 04/15/19 04:34 Gillespie # 0.5 K/mm3 (0.0-0.8) 04/15/19 04:34 Eos # 0.4 K/mm3 (0.0-0.4) 04/15/19 04:34 Baso # 0.0 K/mm3 (0.0-0.1) 04/15/19 04:34 Seg Neutrophils % 68.6 % (40.0-70.0) 04/15/19 04:34 Seg Neutrophils # 4.0 K/mm3 (1.8-7.7) 04/15/19 04:34 PT 13.5 Sec. (12.2-14.9) 04/14/19 04:15 INR 0.97 (0.87-1.13) 04/14/19 04:15 APTT 30.8 Sec. (24.2-36.6) 04/14/19 04:15 Heparin Anti-Xa Level 0.44 U.I./ml (0.3-0.7) 04/14/19 10:12 Sodium 142 mmol/L (137-145) 04/15/19 04:34 Potassium 3.2 mmol/L (3.6-5.0) L D 04/15/19 04:34 Chloride 97.2 mmol/L (98-107) L 04/15/19 04:34 Carbon Dioxide 27 mmol/L (22-30) 04/15/19 04:34 21 mmol/L 04/15/19 04:34 BUN 29 mg/dL (9-20) H 04/15/19 04:34 7.6 mg/dL (0.8-1.5) H 04/15/19 04:34 Estimated GFR 9 ml/min 04/15/19 04:34 4 % 04/15/19 04:34 Glucose 107 mg/dL (75-100) H 04/15/19 04:34 POC Glucose 89 (70-105) 04/15/19 07:40 Calcium 8.5 mg/dL (8.4-10.2) 04/15/19 04:34 0.40 mg/dL (0.1-1.2) 04/15/19 04:34 AST 18 units/L (5-40) 04/15/19 04:34 ALT 16 units/L (7-56) 04/15/19 04:34 75 units/L (35-129) 04/15/19 04:34 0.044 ng/mL (0.00-0.029) H D 04/15/19 04:34 NT-Pro-B Natriuret Pep 22840 pg/mL (0-900) H 04/13/19 21:12 6.8 g/dL (6.3-8.2) 04/15/19 04:34 3.6 g/dL (3.9-5) L 04/15/19 04:34 1.1 % 04/15/19 04:34 Triglycerides 203 mg/dL (2-149) H 04/13/19 21:12 Cholesterol 160 mg/dL (50-199) 04/13/19 21:12 98 mg/dL (50-130) 04/13/19 21:12 41 mg/dL (40-59) 04/13/19 21:12 3.90 % 04/13/19 21:12 Active Medications - Current Medications Current Medications: Generic Name Dose Route Start Last Admin Trade Name Freq PRN Reason Stop Dose Admin Acetaminophen 650 mg 04/13/19 23:21 Tylenol PO Q4H PRN Pain MILD(1-3)/Fever >100.5/BAILEY Albuterol/Ipratropium 1 ampul 04/14/19 02:45 04/15/19 07:55 Duoneb *Not For Prn Use* IH 1 ampul Q6HRT PAWEL Administration Amlodipine Besylate 10 mg 04/13/19 23:28 04/15/19 10:00 Norvasc PO 10 mg QDAY PAWEL Administration Aspirin 81 mg 04/15/19 10:00 04/15/19 10:00 Baby Aspirin PO 81 mg QDAY PAWEL Administration Atorvastatin Calcium 80 mg 04/14/19 02:27 04/14/19 21:13 Lipitor PO 80 mg QHS PAWEL Administration Carvedilol 25 mg 04/13/19 23:45 04/15/19 10:00 Coreg PO 25 mg BID@0800,1700 PAWEL Administration Dextrose 50 ml 04/13/19 23:26 D50w (25gm) Syringe IV PRN PRN Hypoglycemia Furosemide 40 mg 04/14/19 04:00 04/15/19 05:05 Lasix IV 40 mg Q8H PAWEL Administration Heparin Sodium (Porcine) 5,000 unit 04/14/19 10:00 04/15/19 10:00 Heparin SUB-Q 5,000 unit Q12HR PAWEL Administration Hydralazine HCl 100 mg 04/13/19 23:28 04/15/19 10:00 Apresoline PO 100 mg TID PAWEL Administration Hydromorphone HCl 0.5 mg 04/13/19 23:21 Dilaudid IV Q3H PRN Pain , Severe (7-10) Nitroglycerin/Dextrose 50 mg in 250 mls @ 3 mls/hr 04/13/19 22:00 04/14/19 08:45 Tridil Drip 50mg/250ml IV 0 mcg/min TITR PAWEL 0 mls/hr Titration Protocol 10 MCG/MIN Sodium Chloride 100 mls @ 999 mls/hr 04/13/19 22:28 Nacl 0.9% IV GARIMA PRN Hypotension Insulin Glargine 10 units 04/14/19 22:00 04/14/19 22:41 Lantus SUB-Q 10 units QHS PAWEL Administration Insulin Human Lispro 0 unit 04/14/19 07:30 04/15/19 07:30 Humalog SUB-Q Not Given ACHS PAWEL Protocol Losartan Potassium 50 mg 04/15/19 10:00 04/15/19 09:59 Cozaar PO 50 mg QDAY PAWEL Administration Ondansetron HCl 4 mg 04/13/19 23:21 Zofran IV Q8H PRN Nausea And Vomiting Oxycodone/Acetaminophen 1 tab 04/13/19 23:21 Percocet 5/325 PO Q6H PRN Pain, Moderate (4-6) Potassium Chloride 40 meq 04/15/19 10:35 K-Dur PO 04/15/19 10:36 ONCE ONE Sodium Chloride 10 ml 04/14/19 10:00 04/15/19 10:01 Sodium Chloride Flush Syringe 10 Ml IV 10 ml BID PAWEL Administration Sodium Chloride 10 ml 04/13/19 23:21 04/15/19 05:07 Sodium Chloride Flush Syringe 10 Ml IV 10 ml PRN PRN Administration LINE FLUSH Nutrition/Malnutrition Assess - Dietary Evaluation Nutrition/Malnutrition Findings: Nutrition Notes Start: 04/14/19 15:41 Freq: Status: Active Protocol: Document 04/14/19 15:41 RM (Rec: 04/14/19 15:42 RM [id number]) Nutrition Notes Need for Assessment generated from: director semiconductor Initial or Follow up Brief Note Current Diagnosis Diabetes,Hypertension Other Pertinent Diagnosis ESRD on HD, Fluid overload Subjective/Other Information Screened for difficulty chewing. Pt stated that his appetite is good and that he eats all of his meals. Denied chewing difficulty. Burn Absent Trauma Absent Nutrition Intervention Revisit per MD consult or patient Sign Off request:
[2019-04-15] MEDS ORDERED: K-DUR PO NR (12:00)
--- NOTE | 2019-04-15 12:12 | Progress Note ---
Assessment and Plan 64 y/o male with acute respiratory failure secondary to pulmonary edema from hypertensive emergency 1. respiratory failure resolved. 2. Will sign off. Call if questions. Subjective Date of service: 04/15/19 Principal diagnosis: HF; HTN Interval history: Patient now weaned to room air. Stable, no acute pulmonary issues. Objective - Constitutional Vitals: Vital Signs - 12hr 04/15/19 04/15/19 04/15/19 03:57 04:30 07:55 Temperature 99.0 F Pulse Rate 83 81 Pulse Rate [ 77 Bilateral Throughout] Respiratory 18 Rate Respiratory 18 Rate [Bilateral Throughout] Blood Pressure 168/79 O2 Sat by Pulse 96 Oximetry 04/15/19 04/15/19 04/15/19 07:57 08:08 08:19 Temperature 98.6 F Pulse Rate 76 Pulse Rate [ 78 Bilateral Throughout] Respiratory 16 Rate Respiratory 18 Rate [Bilateral Throughout] Blood Pressure 161/73 O2 Sat by Pulse 95 95 Oximetry 04/15/19 11:58 Temperature 98.7 F Pulse Rate 77 Pulse Rate [ Bilateral Throughout] Respiratory 16 Rate Respiratory Rate [Bilateral Throughout] Blood Pressure 154/75 O2 Sat by Pulse 96 Oximetry General appearance: Present: no acute distress - EENT Eyes: PERRL, EOM intact ENT: hearing intact, clear oral mucosa - Neck Neck: supple - Respiratory Respiratory: bilateral: CTA - Labs CBC & Chem 7: 04/15/19 04:34 04/15/19 04:34 Labs: Abnormal lab results 04/14/19 04/14/19 04/15/19 Range/Units 11:57 21:06 04:34 RBC 3.44 L (3.65-5.03) M/mm3 Hgb 10.3 L (11.8-15.2) gm/dl Hct 30.4 L (35.5-45.6) % RDW 15.4 H (13.2-15.2) % [place] % (Auto) 8.8 H (0.0-7.3) % Eos % (Auto) 7.1 H (0.0-4.3) % Lymph # 0.9 L (1.2-5.4) K/mm3 Potassium (3.6-5.0) mmol/L Chloride (98-107) mmol/L BUN (9-20) mg/dL Creatinine (0.8-1.5) mg/dL Glucose (75-100) mg/dL POC Glucose 139 H 117 H (70-105) Troponin T (0.00-0.029) ng/mL Albumin (3.9-5) g/dL 04/15/19 Range/Units 04:34 RBC (3.65-5.03) M/mm3 Hgb (11.8-15.2) gm/dl Hct (35.5-45.6) % RDW (13.2-15.2) % Tama % (Auto) (0.0-7.3) % Eos % (Auto) (0.0-4.3) % Lymph # (1.2-5.4) K/mm3 Potassium 3.2 L D (3.6-5.0) mmol/L Chloride 97.2 L (98-107) mmol/L BUN 29 H (9-20) mg/dL Creatinine 7.6 H (0.8-1.5) mg/dL Glucose 107 H (75-100) mg/dL POC Glucose (70-105) Troponin T 0.044 H D (0.00-0.029) ng/mL Albumin 3.6 L (3.9-5) g/dL Medications & Allergies - Medications Allergies/Adverse Reactions: Allergies No Known Allergies Allergy (Unverified 04/13/19 21:04) Home Medications: Home Medications Medication Instructions Recorded Confirmed Last Taken Type Atenolol 50 mg PO DAILY 04/14/19 04/14/19 Unknown History AtorvaSTATin [Lipitor] 40 mg PO DAILY 04/14/19 04/14/19 Unknown History Auryxia 210 mg PO QAC 04/14/19 04/14/19 Unknown History Furosemide [Lasix TAB] 40 mg PO BID 04/14/19 04/14/19 Unknown History Nifedipine ER 90 mg PO DAILY 04/14/19 04/14/19 Unknown History Telmisartan 40 mg PO DAILY 04/14/19 04/14/19 Unknown History Active Medications: Generic Name Dose Route Start Last Admin Trade Name Freq PRN Reason Stop Dose Admin Acetaminophen 650 mg 04/13/19 23:21 Tylenol PO Q4H PRN Pain MILD(1-3)/Fever >100.5/BAILEY Albuterol/Ipratropium 1 ampul 04/14/19 02:45 04/15/19 07:55 Duoneb *Not For Prn Use* IH 1 ampul Q6HRT PAWEL Administration Amlodipine Besylate 10 mg 04/13/19 23:28 04/15/19 10:00 Norvasc PO 10 mg QDAY PAWEL Administration Aspirin 81 mg 04/15/19 10:00 04/15/19 10:00 Baby Aspirin PO 81 mg QDAY PAWEL Administration Atorvastatin Calcium 80 mg 04/14/19 02:27 04/14/19 21:13 Lipitor PO 80 mg QHS PAWEL Administration Carvedilol 25 mg 04/13/19 23:45 04/15/19 10:00 Coreg PO 25 mg BID@0800,1700 PAWEL Administration Dextrose 50 ml 04/13/19 23:26 D50w (25gm) Syringe IV PRN PRN Hypoglycemia Furosemide 40 mg 04/14/19 04:00 04/15/19 05:05 Lasix IV 40 mg Q8H PAWEL Administration Heparin Sodium (Porcine) 5,000 unit 04/14/19 10:00 04/15/19 10:00 Heparin SUB-Q 5,000 unit Q12HR PAWEL Administration Hydralazine HCl 100 mg 04/13/19 23:28 04/15/19 10:00 Apresoline PO 100 mg TID PAWEL Administration Hydromorphone HCl 0.5 mg 04/13/19 23:21 Dilaudid IV Q3H PRN Pain , Severe (7-10) Nitroglycerin/Dextrose 50 mg in 250 mls @ 3 mls/hr 04/13/19 22:00 04/14/19 08:45 Tridil Drip 50mg/250ml IV 0 mcg/min TITR PAWEL 0 mls/hr Titration Protocol 10 MCG/MIN Sodium Chloride 100 mls @ 999 mls/hr 04/13/19 22:28 Nacl 0.9% IV GARIMA PRN Hypotension Insulin Glargine 10 units 04/14/19 22:00 04/14/19 22:41 Lantus SUB-Q 10 units QHS PAWEL Administration Insulin Human Lispro 0 unit 04/14/19 07:30 04/15/19 07:30 Humalog SUB-Q Not Given ACHS PAWEL Protocol Losartan Potassium 50 mg 04/15/19 10:00 04/15/19 09:59 Cozaar PO 50 mg QDAY PAWEL Administration Ondansetron HCl 4 mg 04/13/19 23:21 Zofran IV Q8H PRN Nausea And Vomiting Oxycodone/Acetaminophen 1 tab 04/13/19 23:21 Percocet 5/325 PO Q6H PRN Pain, Moderate (4-6) Potassium Chloride 40 meq 04/15/19 12:00 K-Dur PO 04/15/19 13:00 ONCE NR Sodium Chloride 10 ml 04/14/19 10:00 04/15/19 10:01 Sodium Chloride Flush Syringe 10 Ml IV 10 ml BID PAWEL Administration Sodium Chloride 10 ml 04/13/19 23:21 04/15/19 05:07 Sodium Chloride Flush Syringe 10 Ml IV 10 ml PRN PRN Administration LINE FLUSH
[2019-04-15] MEDS: LANTUS SUB-Q SCH (21:37)
[2019-04-16] MEDS: LASIX IV SCH ×2 (06:01→12:00)
[2019-04-16] MEDS: SODIUM CHLORIDE FLUSH SYRINGE 10 ML IV SCH ×2 (06:02→09:52)
[2019-04-16 06:14] LABS: Calcium 8.3 mg/dL (8.4-10.2)
[2019-04-16] MEDS: HumaLOG SUB-Q SCH ×3 (07:30→16:30)
[2019-04-16] MEDS ORDERED: DUONEB *Not for PRN Use IH SCH (08:00)
[2019-04-16] MEDS ORDERED: LEXISCAN IV ONE ×2 (08:13→08:14)
[2019-04-16] MEDS: NORVASC PO SCH (09:49)
[2019-04-16] MEDS: APRESOLINE PO SCH ×2 (09:50→13:52)
[2019-04-16] MEDS: BABY ASPIRIN PO SCH (09:50)
[2019-04-16] MEDS: COZAAR PO SCH (09:50)
[2019-04-16] MEDS: COREG PO SCH ×2 (09:51→17:00)
[2019-04-16] MEDS: HEPARIN SUB-Q SCH (09:51)
--- NOTE | 2019-04-16 10:33 | Progress Note ---
Assessment and Plan - Patient Problems (1) ESRD needing dialysis Current Visit: Yes Status: Chronic Plan to address problem: Will maintain patient on Saturday//Saturday inpatient hemodialysis schedule. Can be DC home after HD is stable from renal standpoint. (2) Hypertensive chronic kidney disease with stage 5 chronic kidney disease or end stage renal disease Current Visit: Yes Status: Chronic Plan to address problem: Now he has been weaned off the nitroglycerin drip. He has been started on his home antihypertensive regimen. We'll continue to monitor on these current medications. (3) Fluid overload Current Visit: Yes Status: Acute Plan to address problem: Optimize volume status with ultrafiltration during hemodialysis. (4) Anemia in CKD (chronic kidney disease) Current Visit: Yes Status: Chronic Qualifiers: Chronic kidney disease stage: on chronic dialysis Qualified Code(s): N18.6 - End stage renal disease; D63.1 - Anemia in chronic kidney disease; Z99.2 - Dependence on renal dialysis Plan to address problem: As he is now normotensive and weaned off the nitroglycerin drip we will initiate KARUNA therapy with hemodialysis sessions. (5) Secondary hyperparathyroidism (of renal origin) Current Visit: Yes Status: Chronic Plan to address problem: Continue home phosphate binder regimen. Subjective Date of service: 04/16/19 Principal diagnosis: HF; HTN Interval history: No acute issues overnight. Plan for HD today. Objective - Vital Signs Vital signs: Vital Signs - 12hr 04/15/19 04/16/19 04/16/19 23:25 04:20 06:07 Temperature 98.5 F 98.6 F Pulse Rate 79 78 78 Respiratory 19 20 17 Rate Blood Pressure 164/75 173/79 Blood Pressure 150/78 [Right] O2 Sat by Pulse 96 92 Oximetry 04/16/19 04/16/19 04/16/19 08:14 08:28 08:38 Temperature Pulse Rate Respiratory Rate Blood Pressure 163/71 161/79 169/72 Blood Pressure [Right] O2 Sat by Pulse Oximetry 04/16/19 04/16/19 04/16/19 08:40 08:42 09:49 Temperature Pulse Rate 80 Respiratory Rate Blood Pressure 158/75 161/77 160/80 Blood Pressure [Right] O2 Sat by Pulse Oximetry 04/16/19 04/16/19 09:50 09:51 Temperature Pulse Rate 80 80 Respiratory Rate Blood Pressure 160/80 160/80 Blood Pressure [Right] O2 Sat by Pulse Oximetry - General Appearance General appearance: well-developed, well-nourished, appears stated age EENT: ATNC, PERRL Neck: no JVD, no thyromegaly Respiratory: Present: Clear to Ascultation, Normal Exam Cardiology: regular, S1S2 Gastrointestinal: normal, normoactive bowel sounds Integumentary: no rash, warm and dry Neurologic: no focal deficit, no asterixis, alert and oriented x3 Musculoskeletal: deferred Psychiatric: mood/affect appropriate, cooperative - Lab 04/15/19 04:34 04/16/19 04:58 Most recent lab results Calcium 8.3 mg/dL (8.4-10.2) L 04/16/19 04:58 - Allied health notes Allied health notes reviewed: nursing Medications & Allergies - Medications Allergies/Adverse Reactions: Allergies No Known Allergies Allergy (Unverified 04/13/19 21:04) Home Medications: Home Medications Medication Instructions Recorded Confirmed Last Taken Type Atenolol 50 mg PO DAILY 04/14/19 04/14/19 Unknown History AtorvaSTATin [Lipitor] 40 mg PO DAILY 04/14/19 04/14/19 Unknown History Auryxia 210 mg PO QAC 04/14/19 04/14/19 Unknown History Furosemide [Lasix TAB] 40 mg PO BID 04/14/19 04/14/19 Unknown History Nifedipine ER 90 mg PO DAILY 04/14/19 04/14/19 Unknown History Telmisartan 40 mg PO DAILY 04/14/19 04/14/19 Unknown History Active Medications: Generic Name Dose Route Start Last Admin Trade Name Freq PRN Reason Stop Dose Admin Acetaminophen 650 mg 04/13/19 23:21 Tylenol PO Q4H PRN Pain MILD(1-3)/Fever >100.5/BAILEY Albuterol/Ipratropium 1 ampul 04/16/19 08:00 Duoneb *Not For Prn Use* IH TIDRT PAWEL Amlodipine Besylate 10 mg 04/13/19 23:28 04/16/19 09:49 Norvasc PO 10 mg QDAY PAWEL Administration Aspirin 81 mg 04/15/19 10:00 04/16/19 09:50 Baby Aspirin PO 81 mg QDAY PAWEL Administration Atorvastatin Calcium 80 mg 04/14/19 02:27 04/15/19 21:25 Lipitor PO 80 mg QHS [facility] Administration Carvedilol 25 mg 04/13/19 23:45 04/16/19 09:51 Coreg PO 25 mg BID@0800,1700 [facility] Administration Dextrose 50 ml 04/13/19 23:26 D50w (25gm) Syringe IV PRN PRN Hypoglycemia Furosemide 40 mg 04/14/19 04:00 04/16/19 06:01 Lasix IV 40 mg Q8H PAWEL Administration Heparin Sodium (Porcine) 5,000 unit 04/14/19 10:00 04/16/19 09:51 Heparin SUB-Q 5,000 unit Q12HR PAWEL Administration Hydralazine HCl 100 mg 04/13/19 23:28 04/16/19 09:50 Apresoline PO 100 mg TID [facility] Administration Hydromorphone HCl 0.5 mg 04/13/19 23:21 Dilaudid IV Q3H PRN Pain , Severe (7-10) Nitroglycerin/Dextrose 50 mg in 250 mls @ 3 mls/hr 04/13/19 22:00 04/14/19 08:45 Tridil Drip 50mg/250ml IV 0 mcg/min TITR PAWEL 0 mls/hr Titration Protocol 10 MCG/MIN Sodium Chloride 100 mls @ 999 mls/hr 04/13/19 22:28 Nacl 0.9% IV GARIMA PRN Hypotension Insulin Glargine 10 units 04/14/19 22:00 04/15/19 21:37 Lantus SUB-Q Not Given QHS [facility] Insulin Human Lispro 0 unit 04/14/19 07:30 04/16/19 07:30 Humalog SUB-Q Not Given ACHS [facility] Protocol Losartan Potassium 50 mg 04/15/19 10:00 04/16/19 09:50 Cozaar PO 50 mg QDAY [facility] Administration Ondansetron HCl 4 mg 04/13/19 23:21 Zofran IV Q8H PRN Nausea And Vomiting Oxycodone/Acetaminophen 1 tab 04/13/19 23:21 Percocet 5/325 PO Q6H PRN Pain, Moderate (4-6) Sodium Chloride 10 ml 04/14/19 10:00 04/16/19 09:52 Sodium Chloride Flush Syringe 10 Ml IV 10 ml BID [facility] Administration Sodium Chloride 10 ml 04/13/19 23:21 04/15/19 05:07 Sodium Chloride Flush Syringe 10 Ml IV 10 ml PRN PRN Administration LINE FLUSH
--- NOTE | 2019-04-16 11:05 | Progress Note ---
Assessment and Plan S/p lexiscan MPI stress test which was negative. Continue to optimize anti-hypertensive regimen - consider increasing losartan to 100mg daily. Volume optimization and electrolyte management per nephrology. Currently stable cardiac status. Pt may discharge from cardiology standpoint. Recommend pt follow up in our office with Dr. Gr within 3-5 days of hospital discharge ([phone]). The patient has been seen in conjunction with Dr. Gr who agrees with the assessment and plan of care. - Patient Problems (1) Acute heart failure with preserved ejection fraction Current Visit: Yes Status: Acute (2) Hypertensive heart disease Current Visit: Yes Status: Chronic (3) Pulmonary edema Current Visit: Yes Status: Acute (4) NSTEMI (non-ST elevated myocardial infarction) Current Visit: Yes Status: Acute (5) Acute respiratory failure Current Visit: Yes Status: Acute (6) Hypertensive emergency Current Visit: Yes Status: Acute (7) ESRD (end stage renal disease) on dialysis Current Visit: Yes Status: Chronic (8) Diabetes Current Visit: Yes Status: Chronic (9) Anemia Current Visit: Yes Status: Acute (10) Altered mental status Current Visit: Yes Status: Resolved (11) Obesity Current Visit: Yes Status: Chronic Subjective Date of service: 04/16/19 Principal diagnosis: HF; HTN Interval history: pt for stress test. no current complaints. Objective Last Vital Signs Temp 98.6 F 04/16/19 04:20 Pulse 80 04/16/19 09:51 Resp 17 04/16/19 06:07 BP 160/80 04/16/19 09:51 Pulse Ox 92 04/16/19 04:20 - Physical Examination General: No Apparent Distress HEENT: Positive: PERRL, Normocephaly, Mucus Membranes Moist Neck: Positive: neck supple, trachea midline Cardiac: Positive: Reg Rate and Rhythm, S1/S2 Lungs: Positive: Decreased Breath Sounds Neuro: Positive: Grossly Intact Abdomen: Positive: Soft. Negative: Tender Skin: Negative: Rash, Wound Musculoskeletal: No Pain Extremities: Absent: edema - Labs and Meds Comprehensive Metabolic Panel 04/16/19 Range/Units 04:58 Sodium 140 (137-145) mmol/L Potassium 3.3 L (3.6-5.0) mmol/L Chloride 96.9 L (98-107) mmol/L Carbon Dioxide 26 (22-30) mmol/L BUN 48 H (9-20) mg/dL Creatinine 9.8 H (0.8-1.5) mg/dL Glucose 88 (75-100) mg/dL Calcium 8.3 L (8.4-10.2) mg/dL - Imaging and Cardiology EKG: report reviewed, image reviewed Echo: report reviewed ( EF 50-55%, mod LV thickening, grade 2 diastolic dysfunction, no significant valvular abnormalities. ) - Telemetry EKG Rhythm: Sinus Rhythm - EKG Sinus rhythms and dysrhythmias: sinus rhythm - Allied health notes Allied health notes reviewed: nursing
[2019-04-16] MEDS ORDERED: NACL 0.9% 100 ML IV PRN (12:30)
--- NOTE | 2019-04-16 13:02 | Discharge Summary ---
Providers - Providers Date of Admission: 04/13/19 23:21 Date of discharge: 04/16/19 Attending physician: WILLIE RAHMAN 04/13/19 22:14 Consult to Physician [CONS] Urgent Comment: Dr. Ferrell spoke with Dr. 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 patient's BP was noted to be markedly elevated. Upon arrival to the ED, patient became responsive. but c/o shortness of breath denies chest pain, palpitation, leg swelling, fever, chills, sore throat, runny nose or congestion, orthopnea or PND. No abdominal pain, constipation, diarrhea, dysuria or frequency.patient was placed on BiPAP due to respiratory distress.Evaluated by pulm.optimised medications,Evaluated by Nephrology ,received HD per schedule,evaluated by cardiology,had negative stress test. Patients symptoms significantly improved,vitals stable. Cleared by all the consultants for discharge and f/u per schedule. Discharge Diagnosis --Acute hypoxemic respiratory failure: Symptoms Significantly improved, secondary to pulmonary edema BiPAP as needed and duonebs, pulmonary following --NSTEMI Probably nonspecific in the setting of end-stage renal disease However patient has multiple risk factors. However patient does not have chest pain Echo;Normal EF 50-55%, Cardiology following --Drop in H&H from 11.8-9.5-10.3 off Heparin drip, stable --Hypokalemia; replace per protocol and monitor levels --Hypertensive emergency with SBP>200[present on admission] s/p Tridil drip, Blood pressures are reasonable control, continue multiple antihypertensives, When necessary medications --Fluid overload in ESRD On IV diuretics since patient still makes urine Nephrology following ,hemodialysis per schedule --ESRD on HD (T/T/S) -Nephrology following --DM2 with hyperglycemia Accu checks sliding scale coverage and ADA diet and Lantus --DVT prophylaxis;SCD Patient stable at discharge . Disposition: DC-01 TO HOME OR SELFCARE Time spent for discharge: 32 min Core Measure Documentation - Palliative Care Palliative Care/ Comfort Measures: Not Applicable - Core Measures Any of the following diagnoses?: none Exam - Constitutional Vitals: Temp Pulse Resp BP Pulse Ox 98.6 F 80 17 160/80 92 04/16/19 04:20 04/16/19 09:51 04/16/19 06:07 04/16/19 09:51 04/16/19 04:20 General appearance: Present: no acute distress, well-nourished - EENT Eyes: Present: PERRL, EOM intact - Neck Neck: Present: supple, normal ROM - Respiratory Respiratory effort: normal Respiratory: bilateral: diminished, negative: rales, rhonchi, wheezing - Cardiovascular Rhythm: regular Heart Sounds: Present: S1 & S2 - Extremities Extremities: no ischemia, No edema - Abdominal General gastrointestinal: Present: soft, non-tender, non-distended, normal bowel sounds - Integumentary Integumentary: Present: clear, warm - Musculoskeletal Musculoskeletal: strength equal bilaterally, generalized weakness - Psychiatric Psychiatric: appropriate mood/affect, cooperative - Neurologic Neurologic: CNII-XII intact, moves all extremities Plan Activity: advance as tolerated Diet: diabetic, other (cardiac diet) Additional Instructions: Strongly advised to comply with medications, diet, exercise and follow-up visits. Follow renal, hemodialysis per schedule TTS Follow up with: [facility] MD JUAN MANUEL [Primary Care Provider] - 3-5 Days FREDDIE ESPAÑA MD [Staff Physician] - 7 Days JONY LANG DO [Staff Physician] - 7 Days Prescriptions: hydrALAZINE [Apresoline TAB] 100 mg PO TID #90 tab Aspirin [Aspirin BABY CHEW TAB] 81 mg PO QDAY #30 tab.chew Carvedilol [Coreg] 25 mg PO BID@0800,1700 #60 tablet Losartan [Cozaar] 100 mg PO QDAY #30 tablet AtorvaSTATin [Lipitor] 80 mg PO QHS #30 tablet amLODIPine [Norvasc] 10 mg PO QDAY #30 tablet
[2019-04-16 14:27] LABS: Hepatitis B Surface Antigen Non-Reactive (Negative); Hepatitis C Virus Antibody Non-Reactive (NonReactive)
[2019-04-16] MEDS ORDERED: NACL 0.9 (PRIMING MACHINE ONLY DIALYSIS) MC ONE (14:56)
[2019-04-16 21:15] VITALS: BP 140/70
--- NOTE | 2019-04-17 02:33 | Treadmill Report ---
INDICATION FOR PROCEDURE: Abnormal troponins. Informed consent was obtained. Rest and stress nuclear cardiac imaging were performed following the intravenous administration of 10 and 28 mCi of technetium 99m Myoview per protocol. Vasodilator stress was achieved with the intravenous administration of 0.4 mg of Lexiscan per protocol. Images were acquired in a 180-degree arc from 45 degrees SALINAS to 45 degrees LPO. After data acquisition and reconstruction, the images were processed and reoriented into the vertical long, horizontal long, and horizontal short axis slices. A polar color map of the horizontal short axis slices was generated and reviewed. The rotating planar images reviewed in cinematic format on the computer console. Gated SPECT imaging demonstrates a post-stress left ventricular ejection fraction of 59% with the normal wall motion. Myocardial perfusion imaging demonstrates no significant cavity change between stress and rest. No significant stress-induced perfusion defects are seen. Nuclear cardiac imaging demonstrates grossly normal post-stress left ventricular systolic function with no significant evidence for myocardial ischemia or necrosis. [facility]# [id number] TARA/HONG
== END 2019-04-16 19:50 | disposition home or self-care (01) | DRG 280 ==
LOC: ED 20:56 → CC1 23:21 → 4A 04-14 19:32 → UNDODISIN 04-16 19:53
PROVIDERS: ADMIT Internal Medicine; ATTEND Internal Medicine
PROC: 5A09357 Assistance with Respiratory Ventilation, Less than 24 Consecutive Hours, Continuous Positive Airway Pressure (ICD-10-PCS; 2019-04-13)
PROC: 5A1D70Z Performance of Urinary Filtration, Intermittent, Less than 6 Hours Per Day (ICD-10-PCS; principal; 2019-04-14)
PROC: 5A1D70Z Performance of Urinary Filtration, Intermittent, Less than 6 Hours Per Day (ICD-10-PCS; 2019-04-16)
DX: I21.4 Non-ST elevation (NSTEMI) myocardial infarction (principal); J96.01 Acute respiratory failure with hypoxia; N18.6 End stage renal disease; I50.31 Acute diastolic (congestive) heart failure; I16.1 Hypertensive emergency; N25.81 Secondary hyperparathyroidism of renal origin; E44.1 Mild protein-calorie malnutrition; I13.2 Hypertensive heart and chronic kidney disease with heart failure and with stage 5 chronic kidney disease, or end stage renal disease; E87.6 Hypokalemia; E11.65 Type 2 diabetes mellitus with hyperglycemia; E11.22 Type 2 diabetes mellitus with diabetic chronic kidney disease; E66.9 Obesity, unspecified; D63.1 Anemia in chronic kidney disease; Z68.30 Body mass index [BMI] 30.0-30.9, adult; Z82.49 Family history of ischemic heart disease and other diseases of the circulatory system; Z83.3 Family history of diabetes mellitus
CPT/HCPCS: 36415; 71045; 78452; 80048; 80053; 80061; 80074; 82962; 83880; 84484; 85014; 85018; 85025; 85049; 85520; 85610; 85730; 93005; 93010; 93017; 93306; 94640; 94760; G0378; A9270-GY; A9502; J1644; J1815; J1940; J2785; J7030

== ENCOUNTER 2019-06-15 18:38 | Inpatient (IN) | payer OTHER, MEDICARE ==
--- NOTE | 2019-06-15 19:41 | Emergency Department Report ---
HPI - General Chief Complaint: Dyspnea/Respdistress Time Seen by Provider: 06/15/19 19:15 - HPI HPI: Room 9 The patient is a 64-year-old male presenting with a chief complaint shortness of breath. Patient states this evening at 17:00 was sitting down at rest watching television when he suddenly became short of breath. Patient denied ever having chest pain, nausea/vomiting or cough. Patient states she felt warm but was uncertain if he had a fever. Patient states his symptoms lasted approximately 15-30 minutes and then resolved. Patient is currently asymptomatic. The patient has a history of end-stage renal disease and says he was last dialyzed 2 days ago Location: [See above] Duration: [See above] Quality: [See above] Severity: [See above] Modifying factors: [see above] Context: [see above] Mode of transportation: [not driving] ED Past Medical Hx - Past Medical History Previous Medical History?: Yes Hx Hypertension: Yes Hx Congestive Heart Failure: Yes Hx Diabetes: Yes Hx Renal Disease: Yes (esrd) Additional medical history: Dialysis Tues, , Sat - Surgical History Additional Surgical History: Left upper extremity hemodialysis access - Family History Family history: no significant - Social History Smoking Status: Never Smoker Substance Use Type: None - Medications Home Medications: Home Medications Medication Instructions Recorded Confirmed Last Taken Type AtorvaSTATin [Lipitor] 40 mg PO DAILY 04/14/19 06/15/19 Unknown History Auryxia 210 mg PO QAC 04/14/19 06/15/19 Unknown History Furosemide [Lasix TAB] 40 mg PO BID 04/14/19 06/15/19 Unknown History Aspirin [Aspirin BABY CHEW TAB] 81 mg PO QDAY #30 tab.chew 04/16/19 06/15/19 Unknown Rx AtorvaSTATin [Lipitor] 80 mg PO QHS #30 tablet 04/16/19 06/15/19 Unknown Rx Carvedilol [Coreg] 25 mg PO BID@0800,1700 #60 tablet 04/16/19 06/15/19 Unknown Rx Losartan [Cozaar] 100 mg PO QDAY #30 tablet 04/16/19 06/15/19 Unknown Rx amLODIPine [Norvasc] 10 mg PO QDAY #30 tablet 04/16/19 06/15/19 Unknown Rx hydrALAZINE [Apresoline TAB] 100 mg PO TID #90 tab 04/16/19 06/15/19 Unknown Rx ED Review of Systems ROS: Stated complaint: JOHNNY Other details as noted in HPI Constitutional: denies: fever Eyes: denies: eye pain ENT: denies: throat pain Respiratory: shortness of breath. denies: cough Cardiovascular: denies: chest pain Endocrine: no symptoms reported Gastrointestinal: denies: abdominal pain, nausea, vomiting Genitourinary: denies: testicular pain Musculoskeletal: denies: back pain Neurological: denies: headache Physical Exam - Physical Exam Physical Exam: GENERAL: The patient is well-developed well-nourished male lying on stretcher not appearing to be in acute distress. [] HEENT: Normocephalic. Atraumatic. Extraocular motions are intact. Patient has moist mucous membranes. NECK: Supple. Trachea midline CHEST/LUNGS: Clear to auscultation. There is no respiratory distress noted. HEART/CARDIOVASCULAR: Regular. There is no tachycardia. There is no gallop rub or murmur. ABDOMEN: Abdomen is soft, nontender. Patient has normal bowel sounds. There is no abdominal distention. SKIN: There is no rash. There is trace bilateral lower extremity edema. There is no diaphoresis. NEURO: The patient is awake, alert, and oriented. The patient is cooperative. The patient has no focal neurologic deficits. The patient has normal speech MUSCULOSKELETAL: There is no evidence of acute injury. ED Medical Decision Making - Lab Data Result diagrams: 06/15/19 19:48 06/15/19 19:48 Laboratory Tests 06/15/19 06/15/19 06/15/19 19:48 19:48 19:48 WBC 9.9 RBC 3.76 Hgb 10.9 L Hct 32.7 L MCV 87 MCH 29 MCHC 33 RDW 15.5 H Plt Count 233 Lymph % (Auto) 6.6 L [place] % (Auto) 6.5 Eos % (Auto) 6.7 H Baso % (Auto) 0.3 Lymph # 0.7 L [place] # 0.6 Eos # 0.7 H Baso # 0.0 Seg Neutrophils % 79.9 H Seg Neutrophils # 7.9 H D-Dimer 700.12 H Sodium 139 Potassium 5.1 H Chloride 98.0 Carbon Dioxide 27 Anion Gap 19 BUN 46 H Creatinine 11.3 H Estimated GFR 6 BUN/Creatinine Ratio 4 Glucose 93 Calcium 9.6 Total Creatine Kinase 447 H CK-MB (CK-2) 5.3 H CK-MB (CK-2) Rel Index 1.1 Troponin T Triglycerides Cholesterol LDL Cholesterol Direct HDL Cholesterol Cholesterol/HDL Ratio 06/15/19 19:48 WBC RBC Hgb Hct MCV MCH MCHC RDW Plt Count Lymph % (Auto) [place] % (Auto) Eos % (Auto) Baso % (Auto) Lymph # [place] # Eos # Baso # Seg Neutrophils % Seg Neutrophils # D-Dimer Sodium Potassium Chloride Carbon Dioxide Anion Gap BUN Creatinine Estimated GFR BUN/Creatinine Ratio Glucose Calcium Total Creatine Kinase CK-MB (CK-2) CK-MB (CK-2) Rel Index Troponin T 0.061 H Triglycerides 83 Cholesterol 124 LDL Cholesterol Direct 69 HDL Cholesterol 43 Cholesterol/HDL Ratio 2.88 - EKG Data -: EKG Interpreted by Me EKG shows normal: sinus rhythm Rate: normal - EKG Data When compared to previous EKG there are: no significant change Interpretation: unchanged when compared t, other (no ischemic changes seen) - Radiology Data Radiology results: report reviewed (chest x-ray, VQ scan), image reviewed (chest x-ray, VQ scan) interpreted by me: Chest x-ray-small amount of fluid in fissure on the right [facility] [place] [address] [place] [address] Nuclear Medicine Report Signed Patient: MI NEUMANN MR#: [id number] : 1955 Acct:[id number] Age/Sex: 64 / M ADM Date: 06/15/19 Loc: ED Attending Dr: Ordering Physician: MANUELA TAYLOR MD Date of Service: 06/15/19 Procedure(s): NM lung scan perf/vent Accession Number(s): [id number] cc: MANUELA TAYLOR MD TECHNICAL DATA: Inhaled administration followed by immediate static images of chest in multiple projections coordinated with breathing instructions. Followed by immediate static images of chest in multiple projections post I.V. injection. 12.0 millicuries of 133 Xenon is administered by inhalation. Pulmonary wash-in, equilibrium, and washout phases are performed. Then, 5 millicuries of 99m Tc MAA is administered intravenously. FINDINGS: Lung imaging-chest x-ray performed same day for comparison The ventilation scan is normal without evidence of delayed washout. The perfusion scan demonstrates homogeneous uptake without evidence of segmental or subsegmental defects. IMPRESSION: No evidence of pulmonary embolic disease. Signer Name: Damon Arroyo MD Signed: 06/15/2019 10:27 PM Workstation Name: [id number] Transcribed By: WG Dictated By: Damon Arroyo MD Electronically Authenticated By: Damon Arroyo MD Signed Date/Time: 06/15/192226 DD/ 25 TD/TT: [facility] [place] [address] [place] [address] XRay Report Signed Patient: MI NEUMANN MR#: [id number] : 1955 Acct:[id number] Age/Sex: 64 / M ADM Date: 06/15/19 Loc: ED Attending Dr: Ordering Physician: MANUELA TAYLOR MD Date of Service: 06/15/19 Procedure(s): XR chest 1V ap Accession Number(s): [id number] cc: MANUELA TAYLOR MD Fluoro Time In Minutes: CHEST 1 VIEW 7:36 PM INDICATION / CLINICAL INFORMATION: Shortness of breath starting 45 minutes ago. COMPARISON: None available. FINDINGS: SUPPORT DEVICES: None. HEART / MEDIASTINUM: The heart size is borderline. There is mild prominence of the central pulmonary vessels. LUNGS / PLEURA: Interstitial lung markings are mildly increased in both perihilar regions. There is slight thickening of the right minor fissure. No pneumothorax. ADDITIONAL FINDINGS: No significant additional findings. IMPRESSION: Probable mild congestive heart failure. Signer Name: Randy Mclaughlin MD Signed: 06/15/2019 8:39 PM Workstation Name: [id number] Transcribed By: RT Dictated By: Randy Mclaughlin MD Electronically Authenticated By: Randy Mclaughlin MD Signed Date/Time: 06/15/192038 DD/ 36 TD/TT: - Differential Diagnosis pneumonia, pneumothorax, PE, CHF, Critical care attestation.: If time is entered above; I have spent that time in minutes in the direct care of this critically ill patient, excluding procedure time. ED Disposition Clinical Impression: Shortness of breath, CHF exacerbation Disposition: -09 OP ADMIT IP TO THIS HOSP Is pt being admited?: Yes Does the pt Need Aspirin: Yes Condition: Fair Referrals: PRIMARY CARE,MD [Primary Care Provider] - 3-5 Days Time of Disposition: 23:16 (hospitalist paged (Dr Landis))
[2019-06-15 20:22] LABS: Basophils % (Auto) 0.3 % (0.0-1.8); Eosinophils # (Auto) 0.7 K/mm3 (0.0-0.4); Eosinophils % (Auto) 6.7 % (0.0-4.3); Hematocrit 32.7 % (35.5-45.6); Hemoglobin 10.9 gm/dl (11.8-15.2); Lymphocytes # (Auto) 0.7 K/mm3 (1.2-5.4); Lymphocytes % (Auto) 6.6 % (13.4-35.0); Mean Corpuscular HGB Conc 33 % (32-34); Mean Corpuscular Hemoglobin 29 pg (28-32); Mean Corpuscular Volume 87 fl (84-94); Monocytes # (Auto) 0.6 K/mm3 (0.0-0.8); Monocytes % (Auto) 6.5 % (0.0-7.3); Platelet Count 233 K/mm3 (140-440); Red Blood Count 3.76 M/mm3 (3.65-5.03); Red Cell Distribution Width 15.5 % (13.2-15.2)
--- NOTE | 2019-06-15 20:43 | XRay Report ---
CHEST 1 VIEW 7:36 PM INDICATION / CLINICAL INFORMATION: Shortness of breath starting 45 minutes ago. COMPARISON: None available. FINDINGS: SUPPORT DEVICES: None. HEART / MEDIASTINUM: The heart size is borderline. There is mild prominence of the central pulmonary vessels. LUNGS / PLEURA: Interstitial lung markings are mildly increased in both perihilar regions. There is s light thickening of the right minor fissure. No pneumothorax. ADDITIONAL FINDINGS: No significant additional findings. IMPRESSION: Probable mild congestive heart failure. Signer Name: Randy Mclaughlin MD Signed: 06/15/2019 8:39 PM Workstation Name: [id number]
[2019-06-15 20:45] LABS: Creatine Kinase MB 5.3 ng/mL (0.0-4.0)
[2019-06-15 20:46] LABS: Calcium 9.6 mg/dL (8.4-10.2)
[2019-06-15 21:04] LABS: Chol/HDL Ratio 2.88 %
--- NOTE | 2019-06-15 22:31 | Nuclear Medicine Report ---
TECHNICAL DATA: Inhaled administration followed by immediate static images of chest in multiple projections coordin ed with breathing instructions. Followed by immediate static images of chest in multiple projections post I.V. injection. 12.0 millicuries of 133 Xenon is administered by inhalation. Pulmonary wash-in, equilibrium, and washout phases are performed. Then, 5 millicuries of 99m Tc MAA i s administered intravenously. FINDINGS: Lung imaging-chest x-ray performed same day for comparison The ventilation scan is normal without evidence of delayed washout. The perfusion scan demonstrates h omogeneous uptake without evidence of segmental or subsegmental defects. IMPRESSION: No evidence of pulmonary embolic disease. Signer Name: Damon Arroyo MD Signed: 06/15/2019 10:27 PM Workstation Name: [id number]
[2019-06-16] MEDS ORDERED: CATAPRES PO ONE (00:07)
[2019-06-16 00:39] LABS: Creatine Kinase MB 5.3 ng/mL (0.0-4.0)
[2019-06-16] MEDS ORDERED: ZOFRAN IV PRN (00:45)
[2019-06-16] MEDS ORDERED: NITROSTAT SL PRN (00:45)
[2019-06-16] MEDS ORDERED: D50W (25GM) Syringe IV PRN (00:50)
[2019-06-16] MEDS: HEPARIN SUB-Q SCH ×2 (01:29→09:30)
[2019-06-16] MEDS ORDERED: TYLENOL PO PRN (03:40)
[2019-06-16 05:41] LABS: Creatine Kinase MB 4.5 ng/mL (0.0-4.0)
--- NOTE | 2019-06-16 06:11 | History and Physical Report ---
CHIEF COMPLAINT: Shortness of breath. HISTORY OF PRESENTING ILLNESS: The patient is a 64-year-old male who said he has been having shortness of breath going on since yesterday evening. The patient said he was sitting down after watching television when suddenly he became short of breath. There was no history of chest pain. No history of nausea, vomiting or cough. The patient also was not sure whether he had fever. There was no history of swelling in the ankles. The patient said he had his last dialysis 2 days prior to presentation. PAST MEDICAL HISTORY: Pertinent for hypertension, congestive heart failure, diabetes mellitus, end-stage renal disease, on dialysis on Tuesdays, and Saturdays. PAST SURGICAL HISTORY: Pertinent for left upper extremity hemodialysis access. FAMILY HISTORY: Noncontributory. SOCIAL HISTORY: The patient does not smoke, does not drink alcohol and does not use illicit drug. MEDICATIONS: The patient is on Lipitor 40 mg by mouth daily, Auryxia 210 mg by mouth q.a.c., Lasix 40 mg by mouth twice daily, aspirin 81 mg by mouth daily, Coreg or carvedilol 25 mg by mouth twice daily, Cozaar 100 mg by mouth daily, amlodipine 10 mg by mouth daily, hydralazine/Apresoline 100 mg by mouth 3 times daily. ALLERGIES: There are no known drug allergies. REVIEW OF SYSTEMS: CONSTITUTIONAL: There is no fever, no chills, no diaphoresis. HEENT: There is no headache or sore throat. CARDIOVASCULAR SYSTEM: There is no chest pain or orthopnea. RESPIRATORY SYSTEM: Shortness of breath is present. Cough is present. GASTROINTESTINAL SYSTEM: There is no nausea, no vomiting, no abdominal pain, diarrhea or constipation. NEUROLOGICAL SYSTEM: There is no numbness, no dizziness, no altered mental status. MUSCULOSKELETAL SYSTEM: There is no joint pain or swelling. DERMATOLOGICAL SYSTEM: There is no skin rash or itching. GENITOURINARY SYSTEM: There is no dysuria, hematuria, or flank pain. Rest of system review is normal. PHYSICAL EXAMINATION: GENERAL: At the time of exam, the patient was found to be alert, oriented x 3 and not in acute distress. VITAL SIGNS: Show temperature of 97.6 degrees Fahrenheit, pulse of 85, respirations 18, blood pressure 130/57, O2 sat of 96% on room air. HEENT: Showed pupils to be equal, round, and reactive to light and accommodation. Extraocular muscles are intact. NECK: Supple with no JVD or carotid bruit. CARDIOVASCULAR SYSTEM: Showed normal first and second heart sounds with no gallops or murmurs. RESPIRATORY SYSTEM: Showed good air entry on both sides of the lungs, with no abnormal breath sounds. GASTROINTESTINAL SYSTEM: Showed abdomen to be full, soft, nontender with no organomegaly or rigidity. NEUROLOGIC: Showed no focal deficit. MUSCULOSKELETAL SYSTEM: Showed no joint swelling or tenderness. DERMATOLOGICAL SYSTEM: Showed no skin rash. GENITOURINARY SYSTEM: Showing no costovertebral angle tenderness. PERTINENT LABORATORY AND IMAGING STUDIES: The patient has chest x-ray done that shows mild congestive heart failure. The patient has also pulmonary perfusion done, with no evidence of pulmonary embolic disease. Lab result, the patient has CBC done with normal white count, low hemoglobin and low hematocrit with CBC differential showing elevated segmented neutrophil count of 79.9%. The patient's D-dimer was elevated with a value of 700.12. The patient's ABG was unremarkable, except for low O2 sat of 74 on room air. The patient's chemistry shows slight increase in potassium level of 5.1 with elevated BUN of 46 and high creatinine of 11.3 consistent with end-stage renal disease, on dialysis. The patient's cardiac enzymes show elevated total CPK of 447 with elevated CK-MB of 5.3 and normal CK percentage index with elevated troponin level of 0.061. Rest of the patient's chemistry was unremarkable. DIAGNOSES: 1. Congestive heart failure exacerbation. 2. Elevated troponin level. PLAN OF CARE: 1. The patient will be admitted to telemetry. 2. The patient will have cardiac enzymes involving troponin, total CK and CK-MB check serially every 6 hours x 2 more levels. 3. The patient will have 2D echo done in the morning. 4. The patient will have Nephrology consult with ____who has seen the patient in the past, and also, the patient will have Cardiology consult with Dr. Colt Pearce because of CHF exacerbation with elevated troponin level. 5. The patient will be on his home medication as shown in the medication reconciliation section. 6. The patient will be on IV Lasix 40 mg daily and will be on nitro paste 0.5 inch to anterior chest wall q.i.d. 7. The patient will be on p.r.n. medications like Zofran 4 mg IV every 8 hours as needed for nausea and vomiting and will be on Tylenol 650 mg by mouth every 4 hours for fever and headache. 8. The patient will have 2D echo done this morning. 9. The patient will be on Accu-Cheks a.c. and at bedtime followed by low-dose sliding scale coverage using regular insulin. 10. The patient's diet will be consistent carbohydrate, 2-g sodium diet. 11. The patient will be on oxygen by nasal cannula at 2 liter per minute. JOB# [id number] OCN/NTS
[2019-06-16] MEDS: NITRO-BID 2% TP SCH ×3 (06:38→17:58)
[2019-06-16] MEDS ORDERED: AURYXIA 210 MG PO SCH (07:30)
[2019-06-16] MEDS: APRESOLINE PO SCH ×2 (09:28→17:59)
[2019-06-16] MEDS: COREG PO SCH ×2 (09:28→17:59)
[2019-06-16] MEDS ORDERED: NORVASC PO SCH (10:00)
[2019-06-16] MEDS ORDERED: COZAAR PO SCH (10:00)
[2019-06-16] MEDS ORDERED: LASIX IV SCH (10:00)
[2019-06-16] MEDS ORDERED: BABY ASPIRIN PO SCH (10:00)
--- NOTE | 2019-06-16 10:56 | Consultation ---
History of Present Illness - Reason for Consult Consult date: 06/16/19 end stage renal disease Requesting physician: MANUELA TAYLOR - History of Present Illness This is a 64 yo AAM well known to me from outpatient HD, with PMHx of hypertension, DM, HFpEF, ESRD on HD on TTS schedule, who presents to [facility] with 1 day history of SOB, [place], CXR in ER showed mild pulmonary vascular congestion, V/Q scan showed low probability for PE. Labs showed mild trop elevation and pt was admitted for further cardiac evaluation. renal consult was requested for management of ESRD and HD. pt denies fever, chills, n/v/d, abd pain, dysuria, rash. pt is compliant with all HD treatments as outpatient. Past History Past Medical History: diabetes, ESRD, heart failure, hypertension Past Surgical History: Other (AVF placement ) Social history: denies: smoking, alcohol abuse, prescription drug abuse, IV drug use Family history: hypertension Medications and Allergies Allergies Allergy/AdvReac Type Severity Reaction Status Date / Time No Known Allergies Allergy Verified 06/16/19 00:54 Home Medications Medication Instructions Recorded Confirmed Last Taken Type Auryxia 210 mg PO QAC 04/14/19 06/15/19 Unknown History Aspirin [Aspirin BABY CHEW TAB] 81 mg PO QDAY #30 tab.chew 04/16/19 06/15/19 Unknown Rx Carvedilol [Coreg] 25 mg PO BID@0800,1700 #60 tablet 04/16/19 06/15/19 Unknown Rx amLODIPine [Norvasc] 10 mg PO QDAY #30 tablet 04/16/19 06/15/19 Unknown Rx hydrALAZINE [Apresoline TAB] 100 mg PO TID #90 tab 04/16/19 06/15/19 Unknown Rx AtorvaSTATin [Lipitor] 40 mg PO DAILY #30 tablet 06/16/19 Unknown Rx AtorvaSTATin [Lipitor] 80 mg PO QHS #30 tablet 06/16/19 Unknown Rx Carvedilol [Coreg] 25 mg PO BID@0800,1700 #60 tablet 06/16/19 Unknown Rx Furosemide [Lasix TAB] 40 mg PO BID #60 tablet 06/16/19 Unknown Rx Insulin Regular, Human [HumuLIN R] 0 units SUB-Q AC units 06/16/19 Unknown Rx Insulin Regular, Human [HumuLIN R] 0 units SUB-Q QHS units 06/16/19 Unknown Rx Losartan [Cozaar] 100 mg PO QDAY #30 tablet 06/16/19 Unknown Rx Active Meds: Active Medications Acetaminophen (Tylenol) 650 mg PO Q4H PRN PRN Reason: Fever >101 Amlodipine Besylate (Norvasc) 10 mg PO QDAY [facility] Last Admin: 06/16/19 09:28 Dose: 10 mg Documented by: Aspirin (Baby Aspirin) 81 mg PO QDAY [facility] Last Admin: 06/16/19 09:29 Dose: 81 mg Documented by: Atorvastatin Calcium (Lipitor) 80 mg PO QHS [facility] Carvedilol (Coreg) 25 mg PO BID@0800,1700 [facility] Last Admin: 06/16/19 09:28 Dose: 25 mg Documented by: Dextrose (D50w (25gm) Syringe) 50 ml IV PRN PRN PRN Reason: Hypoglycemia Furosemide (Lasix) 40 mg IV QDAY [facility] Last Admin: 06/16/19 09:29 Dose: 40 mg Documented by: Heparin Sodium (Porcine) (Heparin) 5,000 unit SUB-Q Q12HR [facility] Last Admin: 06/16/19 09:30 Dose: 5,000 unit Documented by: Hydralazine HCl (Apresoline) 100 mg PO TID [facility] Last Admin: 06/16/19 09:28 Dose: 100 mg Documented by: Sodium Chloride (Nacl 0.9%) 100 mls @ 999 mls/hr IV G[facility] PRN PRN Reason: Hypotension Insulin Human Regular (Humulin R) 0 units SUB-Q [facility]; Protocol Insulin Human Regular (Humulin R) [facility]; Protocol Losartan Potassium (Cozaar) 100 mg PO QDAY [facility] Last Admin: 06/16/19 09:28 Dose: 100 mg Documented by: Miscellaneous Medication (Auryxia) 210 mg PO QAC [facility] Nitroglycerin (Nitro-Bid 2%) 0.5 inch TP QIDNTG [facility]; Protocol Last Admin: 06/16/19 09:29 Dose: 0.5 inch Documented by: Nitroglycerin (Nitrostat) 0.4 mg SL .Q5MIN PRN PRN Reason: Chest Pain Ondansetron HCl (Zofran) 4 mg IV Q8H PRN PRN Reason: Nausea And Vomiting Review of Systems All systems: negative Constitutional: weakness Cardiovascular: shortness of breath, dyspnea on exertion Exam - Vital Signs Vital signs: Vital Signs Pulse Ox 92 06/15/19 19:27 - General Appearance General appearance: well-developed, well-nourished, appears stated age EENT: ATNC, PERRL, mucous membranes moist Neck: Present: neck supple Respiratory: Clear to Ascultation Heart: regular, S1S2 Gastrointestinal: Present: normoactive bowel sounds Integumentary: no rash, other (no edema ) Neurologic: no focal deficit, alert and oriented x3, strength 5/5, CN 3-[address] Psychiatric: mood/affect appropriate, cooperative Results - Lab Results 06/15/19 19:48 06/15/19 19:48 Most recent lab results Calcium 9.6 mg/dL (8.4-10.2) 06/15/19 19:48 Assessment and Plan - Patient Problems (1) ESRD (end stage renal disease) on dialysis Current Visit: No Status: Chronic Plan to address problem: arranged HD on TTS schedule, with target UF 2-3L today for volume control. stable for discharge after HD, if no further cardiac work up required (2) Hypertensive chronic kidney disease with stage 5 chronic kidney disease or end stage renal disease Current Visit: No Status: Chronic Plan to address problem: resume home BP regimen (3) Pulmonary edema Current Visit: No Status: Acute Plan to address problem: HD today with target UF 2-3L as tolerated. Patient has residual renal function, cont lasix 40mg po bid. (4) Secondary hyperparathyroidism (of renal origin) Current Visit: No Status: Chronic Plan to address problem: resume home PO4 binders
[2019-06-16] MEDS ORDERED: NACL 0.9% 100 ML IV PRN (11:00)
--- NOTE | 2019-06-16 11:35 | Consultation ---
History of Present Illness Consult date: 06/16/19 Requesting physician: JANIS SHELDON Consult reason: congestive heart failure, elevated troponin History of present illness: The patient is 64 year old male with a history of end-stage renal disease on hemodialysis(T/T/S), HFpEF, HTN, DM, obesity. He has been seen by our practice on prior hospitalization, no OP follow up. He presented with complaints of SOB for 1 day prior to arrival. He denies any chest pain, palpitations, n/v, diaphoresis, dizziness, syncope, BLE swelling or orthopnea. He reports compliance with his medication regimen and dialysis. Echo done 03/2019 showed EF 50-55%, mod LV thickening, grade 2 diastolic dysfunction, no significant valvular abnormalities. Lexiscan MPI stress test done 03/2019 was negative. Past History Past Medical History: diabetes, dialysis, ESRD, heart failure, hypertension Medications and Allergies Allergies Allergy/AdvReac Type Severity Reaction Status Date / Time No Known Allergies Allergy Verified 06/16/19 00:54 Home Medications Medication Instructions Recorded Confirmed Last Taken Type AtorvaSTATin [Lipitor] 40 mg PO DAILY 04/14/19 06/15/19 Unknown History Auryxia 210 mg PO QAC 04/14/19 06/15/19 Unknown History Furosemide [Lasix TAB] 40 mg PO BID 04/14/19 06/15/19 Unknown History Aspirin [Aspirin BABY CHEW TAB] 81 mg PO QDAY #30 tab.chew 04/16/19 06/15/19 Unknown Rx AtorvaSTATin [Lipitor] 80 mg PO QHS #30 tablet 04/16/19 06/15/19 Unknown Rx Carvedilol [Coreg] 25 mg PO BID@0800,1700 #60 tablet 04/16/19 06/15/19 Unknown Rx Losartan [Cozaar] 100 mg PO QDAY #30 tablet 04/16/19 06/15/19 Unknown Rx amLODIPine [Norvasc] 10 mg PO QDAY #30 tablet 04/16/19 06/15/19 Unknown Rx hydrALAZINE [Apresoline TAB] 100 mg PO TID #90 tab 04/16/19 06/15/19 Unknown Rx Active Meds: Active Medications Acetaminophen (Tylenol) 650 mg PO Q4H PRN PRN Reason: Fever >101 Amlodipine Besylate (Norvasc) 10 mg PO QDAY [facility] Last Admin: 06/16/19 09:28 Dose: 10 mg Documented by: Aspirin (Baby Aspirin) 81 mg PO QDAY [facility] Last Admin: 06/16/19 09:29 Dose: 81 mg Documented by: Atorvastatin Calcium (Lipitor) 80 mg PO QHS [facility] Carvedilol (Coreg) 25 mg PO BID@0800,1700 [facility] Last Admin: 06/16/19 09:28 Dose: 25 mg Documented by: Dextrose (D50w (25gm) Syringe) 50 ml IV PRN PRN PRN Reason: Hypoglycemia Furosemide (Lasix) 40 mg IV QDAY [facility] Last Admin: 06/16/19 09:29 Dose: 40 mg Documented by: Heparin Sodium (Porcine) (Heparin) 5,000 unit SUB-Q Q12HR [facility] Last Admin: 06/16/19 09:30 Dose: 5,000 unit Documented by: Hydralazine HCl (Apresoline) 100 mg PO TID [facility] Last Admin: 06/16/19 09:28 Dose: 100 mg Documented by: Sodium Chloride (Nacl 0.9%) 100 mls @ 999 mls/hr IV GARIMA PRN PRN Reason: Hypotension Insulin Human Regular (Humulin R) 0 units SUB-Q AC [facility]; Protocol Insulin Human Regular (Humulin R) 0 units SUB-Q QHS [facility]; Protocol Losartan Potassium (Cozaar) 100 mg PO QDAY [facility] Last Admin: 06/16/19 09:28 Dose: 100 mg Documented by: Miscellaneous Medication (Auryxia) 210 mg PO QAC [facility] Nitroglycerin (Nitro-Bid 2%) 0.5 inch TP QIDNTG [facility]; Protocol Last Admin: 06/16/19 09:29 Dose: 0.5 inch Documented by: Nitroglycerin (Nitrostat) 0.4 mg SL .Q5MIN PRN PRN Reason: Chest Pain Ondansetron HCl (Zofran) 4 mg IV Q8H PRN PRN Reason: Nausea And Vomiting Review of Systems Constitutional: no weight loss, no weight gain, no fever, no chills, no sweats Ears, nose, mouth and throat: no ear pain, no nose pain, no sinus pressure, no sinus pain Cardiovascular: shortness of breath, high blood pressure, no chest pain, no orthopnea, no palpitations, no rapid/irregular heart beat, no edema, no syncope, no lightheadedness, no leg edema Respiratory: no cough, no congestion, no wheezing, no pain on inspiration Gastrointestinal: no abdominal pain, no nausea, no vomiting, no diarrhea, no constipation, no change in bowel habits Genitourinary Male: no dysuria, no hematuria, no flank pain, no discharge, no urinary frequency, no urinary hesitancy Musculoskeletal: no neck stiffness, no neck pain, no shooting arm pain, no arm numbness/tingling, no low back pain, no shooting leg pain Integumentary: no rash, no pruritis, no redness, no sores, no wounds Neurological: no head injury, no paralysis, no weakness, no parathesias, no numbness, no tingling, no seizures, no syncope Psychiatric: no anxiety Endocrine: no cold intolerance, no heat intolerance Hematologic/Lymphatic: no easy bruising, no easy bleeding Allergic/Immunologic: no urticaria, no wheezing Physical Examination Vital Signs Pulse Ox 92 06/15/19 19:27 General appearance: no acute distress HEENT: Positive: PERRL, Normocephaly, Mucus Membranes Moist Neck: Positive: neck supple, trachea midline Cardiac: Positive: Reg Rate and Rhythm, S1/S2 Lungs: Positive: clear to auscultation Neuro: Positive: Grossly Intact Abdomen: Negative: Tender Skin: Negative: Rash, Wound Musculoskeletal: No Pain Extremities: Absent: edema Results 06/15/19 19:48 06/15/19 19:48 Cardiac Enzymes 06/15/19 06/15/19 06/16/19 Range/Units 19:48 23:24 04:48 CK-MB (CK-2) 5.3 H 5.3 H 4.5 H (0.0-4.0) ng/mL Lipids 06/15/19 Range/Units 19:48 Triglycerides 83 (2-149) mg/dL Cholesterol 124 (50-199) mg/dL HDL Cholesterol 43 (40-59) mg/dL Cholesterol/HDL Ratio 2.88 % CBC 06/15/19 Range/Units 19:48 WBC 9.9 (4.5-11.0) K/mm3 RBC 3.76 (3.65-5.03) M/mm3 Hgb 10.9 L (11.8-15.2) gm/dl Hct 32.7 L (35.5-45.6) % Plt Count 233 (140-440) K/mm3 Lymph # 0.7 L (1.2-5.4) K/mm3 [place] # 0.6 (0.0-0.8) K/mm3 Eos # 0.7 H (0.0-0.4) K/mm3 Baso # 0.0 (0.0-0.1) K/mm3 Comprehensive Metabolic Panel 06/15/19 Range/Units 19:48 Sodium 139 (137-145) mmol/L Potassium 5.1 H (3.6-5.0) mmol/L Chloride 98.0 (98-107) mmol/L Carbon Dioxide 27 (22-30) mmol/L BUN 46 H (9-20) mg/dL Creatinine 11.3 H (0.8-1.5) mg/dL Glucose 93 (75-100) mg/dL Calcium 9.6 (8.4-10.2) mg/dL - Imaging and Cardiology Echo: report reviewed (03/2019 showed EF 50-55%, mod LV thickening, grade 2 diastolic dysfunction, no significant valvular abnormalities.) EKG: report reviewed, image reviewed EKG interpretations - Telemetry EKG Rhythm: Sinus Rhythm - EKG Sinus rhythms and dysrhythmias: sinus rhythm Assessment and Plan DDimer elevated - V/Q scan with no evidence of PE. Optimize anti-hypertensive regimen. Volume optimization and electrolyte management per nephrology. Troponins minimally elevated and flat. Pt denies chest pain, ECG with NAF. Currently nonspecific. F/u ECG in AM. The patient has been seen in conjunction with Dr. Jacobs who agrees with the as sessment and plan of care. - Patient Problems (1) Acute heart failure with preserved ejection fraction Current Visit: Yes Status: Acute (2) Hypertensive heart disease Current Visit: Yes Status: Chronic (3) Elevated troponin Current Visit: Yes Status: Acute (4) Hypertensive emergency Current Visit: Yes Status: Acute (5) ESRD (end stage renal disease) on dialysis Current Visit: Yes Status: Chronic (6) Diabetes Current Visit: Yes Status: Chronic (7) Anemia Current Visit: Yes Status: Acute (8) Altered mental status Current Visit: Yes Status: Resolved (9) Obesity Current Visit: Yes Status: Chronic
[2019-06-16 12:00] LABS: Creatine Kinase MB 4.1 ng/mL (0.0-4.0)
[2019-06-16] MEDS: HumuLIN R SUB-Q SCH ×3 (12:22→18:29)
[2019-06-16 13:30] LABS: Hepatitis A Antibody IgM Non-Reactive (NonReactive); Hepatitis B Core IgM Non-Reactive (NonReactive); Hepatitis B Surface Antigen Non-Reactive (Negative); Hepatitis C Virus Antibody Non-Reactive (NonReactive)
--- NOTE | 2019-06-16 13:59 | Discharge Summary ---
Providers - Providers Date of Admission: 06/16/19 00:38 Date of discharge: 06/16/19 Attending physician: MONCHO COLON 06/16/19 06:00 Consult to Physician [CONS] Routine Comment: Consulting Provider: FREDDIE ESPAÑA Physician Instructions: Reason For Exam: CHF EXACERBATION WITH ELEVATED TROPONIN Consult to Physician [CONS] Routine Comment: Consulting Provider: HOLLY YUAN Physician Instructions: Reason For Exam: ESRD ON DIALYSIS Primary care physician: ONCOLOGY PHYSICIAN ASSISTANT Hospitalization Condition: Good Pertinent studies: CTA negative for PE. Ejection fraction 2-D echo 50%. Cardiac enzymes arms are remarkable in the face of renal failure flat. No EKG changes. As of breath has resolved. Most likely secondary to volume overload. Hospital course: 64-year-old male with history of end-stage renal disease hypertension diabetes and morbid obesity presents with shortness of breath has since resolved. Most likely secondary to volume overload with renal failure. Patient no evidence of CHF increased troponins were flat. Patient ruled out for PE no longer hypoxic. On room air. End-stage disease continue hemodialysis. Saturday. 2-D echo unremarkable as well. Patient chest pain-free shortness of breath. 3 stable to follow-up with cardiology as outpatient. Disposition: TO HOME OR SELFCARE - Discharge Diagnoses (1) Shortness of breath Status: Acute (2) Fluid overload Status: Acute (3) Anemia in CKD (chronic kidney disease) Status: Chronic Qualifiers: Chronic kidney disease stage: on chronic dialysis Qualified Code(s): N18.6 - End stage renal disease; D63.1 - Anemia in chronic kidney disease; Z99.2 - Dependence on renal dialysis (4) Diabetes Status: Chronic (5) ESRD (end stage renal disease) on dialysis Status: Chronic Core Measure Documentation - Palliative Care Palliative Care/ Comfort Measures: Not Applicable - Core Measures Any of the following diagnoses?: none Exam - Constitutional Vitals: Temp Pulse Resp BP Pulse Ox 98.8 F 88 18 153/76 93 06/16/19 11:58 06/16/19 11:58 06/16/19 11:58 06/16/19 11:58 06/16/19 11:58 General appearance: Present: no acute distress, well-nourished - EENT Eyes: Present: PERRL ENT: hearing intact, clear oral mucosa - Neck Neck: Present: supple, normal ROM - Respiratory Respiratory effort: normal Respiratory: bilateral: CTA - Cardiovascular Heart Sounds: Present: S1 & S2. Absent: rub, click - Extremities Extremities: pulses symmetrical, No edema Peripheral Pulses: within normal limits - Abdominal General gastrointestinal: Present: soft, non-tender, non-distended, normal bowel sounds Male genitourinary: Present: normal - Integumentary Integumentary: Present: clear, warm, dry - Musculoskeletal Musculoskeletal: gait normal, strength equal bilaterally - Psychiatric Psychiatric: appropriate mood/affect, intact judgment & insight - Neurologic Neurologic: CNII-XII intact, moves all extremities Plan Activity: advance as tolerated Weight Bearing Status: Full Weight Bearing Diet: diabetic Special Instructions: record daily BP diary, record blood sugar diary Follow up with: PRIMARY CARE, [Primary Care Provider] - 3-5 Days Prescriptions: Carvedilol [Coreg] 25 mg PO BID@0800,1700 #60 tablet Losartan [Cozaar] 100 mg PO QDAY #30 tablet Furosemide [Lasix TAB] 40 mg PO BID #60 tablet AtorvaSTATin [Lipitor] 40 mg PO DAILY #30 tablet AtorvaSTATin [Lipitor] 80 mg PO QHS #30 tablet
[2019-06-16 18:00] VITALS: BP 146/76
[2019-06-16] MEDS ORDERED: NACL 0.9 (PRIMING MACHINE ONLY DIALYSIS) MC ONE (18:45)
[2019-06-16] MEDS ORDERED: HumuLIN R SUB-Q SCH (22:00)
== END 2019-06-16 18:49 | disposition home or self-care (01) | DRG 640 ==
LOC: ED 18:38 → 4A 06-16 00:38
PROVIDERS: ADMIT Internal Medicine; ATTEND Internal Medicine
PROC: 4A033R1 Measurement of Arterial Saturation, Peripheral, Percutaneous Approach (ICD-10-PCS; 2019-06-15)
PROC: 5A1D70Z Performance of Urinary Filtration, Intermittent, Less than 6 Hours Per Day (ICD-10-PCS; principal; 2019-06-16)
DX: E87.70 Fluid overload, unspecified (principal); N18.6 End stage renal disease; I13.2 Hypertensive heart and chronic kidney disease with heart failure and with stage 5 chronic kidney disease, or end stage renal disease; I16.1 Hypertensive emergency; N25.81 Secondary hyperparathyroidism of renal origin; I50.32 Chronic diastolic (congestive) heart failure; E11.22 Type 2 diabetes mellitus with diabetic chronic kidney disease; E66.01 Morbid (severe) obesity due to excess calories; R41.82 Altered mental status, unspecified; D63.1 Anemia in chronic kidney disease; Z68.23 Body mass index [BMI] 23.0-23.9, adult; Z79.82 Long term (current) use of aspirin; Z79.899 Other long term (current) drug therapy; Z82.49 Family history of ischemic heart disease and other diseases of the circulatory system
CPT/HCPCS: 36415; 71045; 78582; 80048; 80061; 80074; 82550; 82553; 82803; 82962; 84484; 85025; 85379; 87116; 93005; 93010; 94760; 96372; G0378; A9540; A9558; J1644; J1815; J1940; J7030

== ENCOUNTER 2019-10-09 16:40 | Outpatient (CLI) | payer OTHER, MEDICARE ==
--- NOTE | 2019-10-09 17:31 | XRay Report ---
CHEST PA AND LATERAL VIEWS INDICATION: PULMONARY EDEMA. COMPARISON: 10/04/2019. FINDINGS: Support devices: None. Heart: Within normal limits. Lungs/Pleura: Previously seen predominantly perihilar bilateral pulmonary opacities have almost compl etely resolved. No new pulmonary or pleural findings. IMPRESSION: 1. Previously seen predominantly perihilar bilateral pulmonary opacities have almost completely resol arielle. No new findings. Signer Name: Boston David MD Signed: 10/09/2019 5:27 PM Workstation Name: [id number]
== END 2019-10-09 16:41 | disposition home or self-care (01) ==
LOC: XRAY 16:40
PROVIDERS: ATTEND Internal Medicine
DX: J81.1 Chronic pulmonary edema (principal); E11.22 Type 2 diabetes mellitus with diabetic chronic kidney disease; I12.0 Hypertensive chronic kidney disease with stage 5 chronic kidney disease or end stage renal disease; N18.6 End stage renal disease; Z99.2 Dependence on renal dialysis
CPT/HCPCS: 71046